=== PATIENT | male | born 1945 | race Caucasian/White ===

== ENCOUNTER 2023-01-13 12:22 | Emergency (ER) | payer OTHER ==
--- OUTSIDE RECORDS SUMMARY | 2023-01-13 12:26 | XMS REPORT | Continuity of Care Document ---
:1945 Author Organization [facility] t Address [address] [place] [address] Care Team Providers Name Role Phone JOAQUIN HUDSON Primary Care Physician Unavailable BLANE MELENDEZ Attending Clinician Unavailable James Wilkerson Attending Clinician Patric Fu Attending Clinician Blane Melendez MD Attending Clinician BLANE MELENDEZ Attending Clinician Unavailable Bessie Pichardo Attending Clinician Brigitte Melendrez CRNA Attending Clinician Belle Bates Attending Clinician Indira Joshua MD Attending Clinician Emma Pizano MD Attending Clinician BLANE MELENDEZ Admitting Clinician Unavailable Payers Payer Name Policy Type Policy Number Effective Date Expiration Date S eileen AETNA [facility] - [id number] AETNA Problems Condition Condition Condition Status Onset Resolution Last Treating Co mments Source Name Details Category Date Date Treatment Clinician Date Other Other Disease Active [facility] mechanical 1-18 Katie kes complicati complicati 00:00: Me dical on of on of 00 Center other other ocular ocular device, device, initial initial encounter encounter Glaucoma Glaucoma Disease Active [facility] Katie kes with with 00:00: Medical ocular ocular 00 Center inflammati inflammati on, severe on, severe stage, stage, bilateral bilateral Glaucoma Glaucoma Disease Recurre [facility] associated associated nce 8-17 Katie kes with with 00:00: Medical ocular ocular 00 Center inflammati inflammati on, severe on, severe stage, stage, bilateral bilateral Disorder Disorder Problem Active 2014-082022-12-22 Memoria of the of the 0-07 23:09:31 l peripheral peripheral 00:00: He rmann nervous nervous 00 system system (disorder) (disorder) Active 05/20/2015 Problem 12/22/2022 [facility] Idiopathic Idiopathi Problem Active 2013-082022-12-22 Memoria peripheral c 1-04 23:09:31 l neuropathy peripheral 00:00: He rmann (disorder) neuropathy 00 (disorder) Active 06/17/2014 Problem 12/22/2022 Medical [facility] Essential Essential Problem Active 2022-12-22 Memoria hypertensi hypertensi - 23:09:31 l on on 00:00: Chance (disorder) (disorder) 00 Active 02/05/2014 Problem 12/22/2022 Medical [facility] her [facility] Skin Skin Problem Active 2022-12-22 Memor ia sensation sensation - 23:09:31 l disturbanc disturbanc 00:00: He rmann e e 00 (finding) (finding) Active 02/05/2014 Problem 12/22/2022 Medical [facility] her [facility] Hypertensi Hypertens Problem Resolve 2022-02-24 Memoria ve lizzy d 02:36:19 l disorder, disorder, Herm bradley systemic systemic arterial arterial (disorder) (disorder) Resolved [facility] Large Large Problem Resolve 2022-02-24 [facility] allan prostate prostate d 02:36:19 l (finding) (finding) Herm bradley Resolved Problem 02/24/2022 [facility] her Neuro Bladder Bladder Problem Active 2022-12-22 Me moria muscle muscle 23:09:31 l dysfunctio dysfunctio He rmann n - n - underactiv underactiv e e (disorder) (disorder) Active Problem 12/22/2022 Medical Group,[facility] Hyperlipid Hyperlipi Problem Active 2022-12-22 Memoria breann demia 23:09:31 l (disorder) (disorder) He rmann Active Problem 12/22/2022 Medical Group,[facility] her Neuro,[facility] Lower Lower Problem Active 2022-12-22 Memor ia urinary urinary 23:09:31 l tract tract [place] symptoms symptoms (finding) (finding) Active Problem 12/22/2022 Medical Group,[facility] H20.9 - H20.9 - Diagnosis Active 2022-10-18 Memoria UNSPECIFIE UNSPECIFIE 10:11:00 l D D Chance IRIDOCYCLI IRIDOCYCLI TIS TIS Active [facility] Allergies, Adverse Reactions, Alerts Allergy Allergy Status Severity Reaction(s) Onset Inactive Treating Comm ents Source Name Type Date Date Clinician NO KNOWN Allergy Active [facility] No Known No Known Active Memori a Medicati Medicati l on on [facility] Social [facility] Social Habit Start Date Stop Date Quantity Comments Source Alcohol intake 2022-09-01 2022-09-01 Ex-drinker [facility] 00:[facility]:00 00:00:00 (finding) Medical [place] Social History 2022-07-22 2022-07-22 [facility] 17:02:48 17:02:48 Tobacco use and 2022-03-16 2022-03-16 Smokeless tobacco [facility] exposure 00:[facility]:00 00:00:00 non-user [facility] Smoking Status Start Date Stop Date Source Tobacco smoking status [facility] Medications Ordered Filled Start Stop Current Ordering Indication Dosage Frequency Signature Comments Components Source Medication Medication Date Date Medication? Clinician (SIG) Name Name neomycin-po Yes 1[drp] Q.25D 1 drop [address] [facility] [address] lymyxin-dex 1-20 (four) [facility] am[facility] 15:15: times Medica l (MAXITROL) 03 daily. Center 3.5mg/mL-10 ,000 unit/mL-0.1 % ophthalmic suspension white Yes Place into [facility] petrolatum- 1-20 both eyes Michael es mineral 15:15: 3 (three) Medic al oil-lanolin 03 times Center (AKWA daily as TEARS) Oint needed. ophthalmic ointment dorzolamide 2022- No 1[drp] Q.[id number] [address] (TRUSOPT) 2 -20 - [id number] (three) [facility]ukes % 15:15: 00:00 3D times Medical ophthalmic 03 :00 daily. Center solution brimonidine Yes 1[drp] Q.[id number] Place [address] [facility] [address] -timoloL - [id number] drop into [facility] (COMBIGAN) 15:17: 3D the left Med ical 0.2-0.5 % 33 eye 3 Center ophthalmic (three) solution times daily . finasteride Yes 5mg QD Take [address] (PROSCAR) 5 -19 by mouth Luke s mg tablet 15:17: daily. Medica l 33 Center nebivoloL Yes 10mg QD Take [address] (BYSTOLIC) -19 by mouth [facility] 10 MG 15:17: daily. Medical tablet 33 Center losartan Yes 50mg QD Take [address] (COZAAR) 50 -19 by mouth Luke s MG tablet 15:17: daily. Medica l 33 [place] diflupredna Yes 1[drp] Q.25D Place [address] [facility] te -19 drop into [facility] (DurezoL) 15:17: the right Med ical 0.05 % Drop 33 eye 4 [place] (four) times daily. moxifloxaci Yes 1[drp] Q.[id number] Place [address] n (VIGAMOX) -19 [id number] drop into [facility] 0.5 % 15:17: 3D the right Medical ophthalmic 33 eye 3 [place] solution (three) times daily. netarsudiL 2022- No 1[drp] QD Place [address] (Rhopressa) -09-01 drop into Katie kes 0.02 % Drop 14:53: 00:00 the left M edical 12 :00 eye Center nightly . cycloSPORIN 2022- No 1[drp] Apply [address] [facility] E (Cequa) 09-01 drop to [facility] 0.09 % Dpet 13:33: 00:00 eye(s) as Medical 29 :00 needed Center (dry eye) . cyanocobala 2022- No 1{tbl} QD Take [address] min/folic 09-01 tablet by Luke s ac/vit B6 13:33: 00:00 mouth Medica l (FOLBEE 23 :00 daily . Center ORAL) nebivoloL 0 Yes 10mg QD Take [address] (BYSTOLIC) 9-13 by mouth [facility]ukes 10 MG 13:08: daily. Medical tablet 01 [place] losartan Yes 50mg QD Take [address] (COZAAR) 50 9-13 by mouth Luke s MG tablet 13:08: daily. Medica l 01 [place] diflupredna Yes 1[drp] Q.25D Place [address] [facility] te 9-13 drop into [facility] (DurezoL) 13:08: the right Med ical 0.05 % Drop 01 eye 4 Center (four) times daily. moxifloxaci 0 Yes 1[drp] Q.[id number] Place [address] n (VIGAMOX) 9-13 [id number] drop into [facility] 0.5 % 13:08: 3D the right Medical ophthalmic 01 eye 3 Center solution (three) times daily. nebivoloL 0 Yes 10mg QD Take [address] (BYSTOLIC) 9-13 by mouth [facility]ukes 10 MG 13:08: daily. Medical tablet 01 [place] losartan Yes 50mg QD Take [address] (COZAAR) 50 9-13 by mouth Luke s MG tablet 13:08: daily. Medica l Center diflupredna 0 Yes 1[drp] Q.25D Place [address] [facility] [facility] te 9-13 drop into [facility]ukes (DurezoL) 13:08: the right Med ical 0.05 % Drop 01 eye 4 Center (four) times daily. moxifloxaci 0 Yes 1[drp] Q.[id number] Place [address] n (VIGAMOX) 9-13 [id number] drop into [facility] 0.5 % 13:08: 3D the right Medical ophthalmic 01 eye 3 Center solution (three) times daily. nebivoloL 2022-0 Yes 10mg QD Take [address] (BYSTOLIC) 9-13 by mouth [facility]ukes 10 MG 13:08: daily. Medical tablet 01 [place] losartan 2-0 Yes 50mg QD Take [address] (COZAAR) 50 9-13 by mouth Luke s MG tablet 13:08: daily. Medica l [address] [place] [address] diflupredna 2-0 Yes 1[drp] Q.25D Place [address] [facility] 9-13 drop into [facility]ukes (DurezoL) 13:08: the right Med ical 0.05 % Drop 01 eye 4 Center (four) times daily. moxifloxaci 2022-0 Yes 1[drp] Q.[id number] Place [address] n (VIGAMOX) 9-13 [id number] drop into [facility] 0.5 % 13:08: 3D the right Medical ophthalmic 01 eye 3 Center solution (three) times daily. nebivoloL 2022-0 Yes 10mg QD Take [address] (BYSTOLIC) 9-13 by mouth [facility]ukes 10 MG 13:08: daily. Medical tablet [address] [place] [address] losartan 2-0 Yes 50mg QD Take [address] (COZAAR) 50 9-13 by mouth Luke s MG tablet 13:08: daily. [facility] [address] diflupredna 2022-0 Yes 1[drp] Q.25D Place [address] [facility] 9-13 drop into [facility]ukes (DurezoL) 13:08: the right Med ical 0.05 % Drop 01 eye 4 Center (four) times daily. moxifloxaci 2022-0 Yes 1[drp] Q.[id number] Place [address] n (VIGAMOX) 9-13 [id number] drop into [facility] 0.5 % 13:08: 3D the right Medical ophthalmic 01 eye 3 Center solution (three) times daily. nebivoloL 2022-0 Yes 10mg QD Take [address] (BYSTOLIC) 9-13 by mouth [facility]ukes 10 MG 13:08: daily. Medical tablet [address] [place] [address] losartan 2-0 Yes 50mg QD Take [address] (COZAAR) 50 9-13 by mouth Luke s MG tablet 13:08: daily. Medica l 01 Center diflupredna Yes 1[drp] Q.25D Place [address] [facility] 9-13 drop into [facility]ukes (DurezoL) 13:08: the right Med ical 0.05 % Drop 01 eye 4 Center (four) times daily. moxifloxaci Yes 1[drp] Q.[id number] Place [address] n (VIGAMOX) 13 [id number] drop into [facility]ukes 0.5 % 13:08: 3D the right Medical ophthalmic 01 eye 3 Center solution (three) times daily. cycloSPORIN Yes 1[drp] Apply [address] E (Cequa) 9-12 drop to [facility]ukes 0.09 % Dpet 13:09: eye(s) as M edical 36 needed Center (dry eye) . brimonidine Yes 1[drp] Q.[id number] Place [address] -timoloL 12 [id number] drop into [facility]ukes (COMBIGAN) 13:09: 3D the left Med ical 0.2-0.5 % 36 eye 3 Center ophthalmic (three) solution times daily . finasteride Yes 5mg QD Take [address] (PROSCAR) 5 9-12 by mouth Luke s mg tablet 13:09: daily. Medica l 36 Center cyanocobala Yes 1{tbl} QD Take [address] min/folic 9-12 tablet by [facility] ac/vit B6 13:09: mouth Medical (FOLBEE 36 daily . Center ORAL) netarsudiL 0 Yes 1[drp] QD Place [address] (Rhopressa) 9-12 drop into Michael es 0.02 % Drop 13:09: the left Me dical 36 eye Center nightly . cycloSPORIN 2021-0 Yes 1[drp] Apply [address] E (Cequa) 9-12 drop to [facility] 0.09 % Dpet 13:09: eye(s) as M edical 36 needed Center (dry eye) . brimonidine 0 Yes 1[drp] Q.[id number] Place [address] -timoloL 9-12 [id number] drop into [facility] (COMBIGAN) 13:09: 3D the left Med ical 0.2-0.5 % 36 eye 3 Center ophthalmic (three) solution times daily . finasteride 2022-0 Yes 5mg QD Take [address] (PROSCAR) 5 9-12 by mouth Luke s mg tablet 13:09: daily. Medica l 36 Center cyanocobala 2-0 Yes 1{tbl} QD Take [address] min/folic 9-12 tablet by [facility] ac/vit B6 13:09: mouth Medical (FOLBEE 36 daily . Center ORAL) netarsudiL 2-0 Yes 1[drp] QD Place [address] (Rhopressa) 9-12 drop into Michael es 0.02 % Drop 13:09: the left Me dical 36 eye Center nightly . cycloSPORIN 2-0 Yes 1[drp] Apply [address] [facility] (Cequa) 9-12 drop to [facility] 0.09 % Dpet 13:09: eye(s) as M edical 36 needed Center (dry eye) . brimonidine 2021-0 Yes 1[drp] Q.[id number] Place [address] [facility] [address] -timoloL -12 [id number] drop into [facility] (COMBIGAN) 13:09: 3D the left Med ical 0.2-0.5 % 36 eye 3 Center ophthalmic (three) solution times daily . finasteride 2022-0 Yes 5mg QD Take [address] (PROSCAR) 5 9-12 by mouth Luke s mg tablet 13:09: daily. Medica l 36 Center cyanocobala 2021-0 Yes 1{tbl} QD Take [address] min/folic 9-12 tablet by [facility] ac/vit B6 13:09: mouth Medical (FOLBEE 36 daily . Center ORAL) netarsudiL 2022-0 Yes 1[drp] QD Place [address] (Rhopressa) 9-12 drop into Michael es 0.02 % Drop 13:09: the left Me dical 36 eye Center nightly . cycloSPORIN 2022-0 Yes 1[drp] Apply [address] [facility] (Cequa) 9-12 drop to [facility] 0.09 % Dpet 13:09: eye(s) as M edical 36 needed Center (dry eye) . brimonidine 2021-0 Yes 1[drp] Q.[id number] Place [address] [address] -timoloL 9-12 [id number] drop into [facility]ukes (COMBIGAN) 13:09: 3D the left Med ical 0.2-0.5 % 36 eye 3 Center ophthalmic (three) solution times daily . finasteride 2022-0 Yes 5mg QD Take [address] (PROSCAR) 5 9-12 by mouth Luke s mg tablet 13:09: daily. Medica l 36 Center cyanocobala 2021-0 Yes 1{tbl} QD Take [address] min/folic 9-12 tablet by [facility]ukes ac/vit B6 13:09: mouth Medical (FOLBEE 36 daily . Center ORAL) netarsudiL 2021-0 Yes 1[drp] QD Place [address] (Rhopressa) 9-12 drop into Michael es 0.02 % Drop 13:09: the left Ks dical 36 eye Center nightly . cycloSPORIN 2021-0 Yes 1[drp] Apply [address] [facility] (Cequa) 9-12 drop to [facility] 0.09 % Dpet 13:09: eye(s) as M edical 36 needed Center (dry eye) . brimonidine 2021-0 Yes 1[drp] Q.[id number] Place [address] [facility] [address] -timoloL 9-12 [id number] drop into [facility] (COMBIGAN) 13:09: 3D the left Med ical 0.2-0.5 % 36 eye 3 Center ophthalmic (three) solution times daily . finasteride 2022-0 Yes 5mg QD Take [address] (PROSCAR) 5 9-12 by mouth Luke s mg tablet 13:09: daily. Medica l 36 Center cyanocobala 2021-0 Yes 1{tbl} QD Take [address] min/folic 9-12 tablet by [facility]ukes ac/vit B6 13:09: mouth Medical (FOLBEE 36 daily . Center ORAL) netarsudiL 2022-0 Yes 1[drp] QD Place [address] (Rhopressa) 9-12 drop into Michael es 0.02 % Drop 13:09: the left Me dical 36 eye Center nightly . acetaZOLAMI 2021- No 500mg Q.5D Take [address] [facility] (DIAMOX) 8-23 08-22 mg by [facility] 500 mg 12 12:00: 00:00 mouth 2 Medi xochitl hr capsule 04 :00 (two) Center times daily. acetaZOLAMI 2021- No 500mg Q.5D Take [address] [facility] (DIAMOX) 8-23 08-22 mg by [facility] 500 mg 12 12:00: 00:00 mouth 2 Medi xochitl hr capsule 04 :00 (two) Center times daily. acetaZOLAMI 2021- No 500mg Q.5D Take [address] [facility] (DIAMOX) 8-23 08-22 mg by [facility] 500 mg 12 12:00: 00:00 mouth 2 Medi xochitl hr capsule 04 :00 (two) Center times daily. acetaZOLAMI 2021- No 500mg Q.5D Take [address] [facility] (DIAMOX) 8-23 08-22 mg by [facility] 500 mg 12 12:00: 00:00 mouth 2 Medi xochitl hr capsule 04 :00 (two) Center times daily. acetaZOLAMI 2021- No 500mg Q.5D Take [address] [facility] (DIAMOX) 8-23 08-22 mg by [facility] 500 mg 12 12:00: 00:00 mouth 2 Medi xochitl hr capsule 04 :00 (two) Center times daily. acetaZOLAMI 2021- No 500mg Q.5D Take [address] [facility] (DIAMOX) 8-23 08-22 mg by [facility] 500 mg 12 12:00: 00:00 mouth 2 Medi xochitl hr capsule 04 :00 (two) Center times daily. cycloSPORIN 2021- No Apply to [facility] E (Cequa) - 08-03 eye(s). [facility] 0.09 % Dpet 12:00: 00:00 Medic al 04 :00 Center dorzolamide 2021- No 1[drp] Q.[id number] [address] [facility] (TRUSOPT) 2 - 08-03 [id number] (three) [facility]ukes % 12:00: 00:00 3D times Medical ophthalmic 04 :00 daily. Center solution pilocarpine 2021-0 2021- No 1[drp] Q.25D [address] [facility] [address] (PILOCAR) 2 04-05- (four) [facility]ukes % 12:00: 00:00 times Medical ophthalmic 04 :00 daily. Center solution cycloSPORIN 2021-2021- No Apply to [facility] E (Cequa) 04-05- eye(s). [facility] 0.09 % Dpet 12:00: 00:00 Medic al 04 :00 Center dorzolamide 2021-0 2021- No 1[drp] Q.[id number] [address] [facility] (TRUSOPT) 2 04-05- [id number] (three) [facility]ukes % 12:00: 00:00 3D times Medical ophthalmic 04 :00 daily. Center solution pilocarpine 2021-0 2021- No 1[drp] Q.25D [address] [facility] (PILOCAR) 2 04-05 (four) [facility]ukes % 12:00: 00:00 times Medical ophthalmic 04 :00 daily. Center solution cycloSPORIN 2021-0 2021- No Apply to [facility] (Cequa) 04-05 eye(s). [facility] 0.09 % Dpet 12:00: 00:00 Medic al 04 :00 Center dorzolamide 2021-0 2021- No 1[drp] Q.[id number] [address] [facility] (TRUSOPT) 2 04-05 [id number] (three) [facility]ukes % 12:00: 00:00 3D times Medical ophthalmic 04 :00 daily. Center solution pilocarpine 2021-0 2021- No 1[drp] Q.25D [address] [facility] [address] (PILOCAR) 2 04-05 (four) [facility] % 12:00: 00:00 times Medical ophthalmic 04 :00 daily. Center solution cycloSPORIN 2021-0 2021- No Apply to [facility] (Cequa) 04-05- eye(s). [facility] 0.09 % Dpet 12:00: 00:00 Medic al 04 :00 Center dorzolamide 2021-0 2021- No 1[drp] Q.[id number] [address] [facility] (TRUSOPT) 2 04-05 [id number] (three) [facility]ukes % 12:00: 00:00 3D times Medical ophthalmic 04 :00 daily. Center solution pilocarpine 2021- No 1[drp] Q.25D [address] [facility] [address] (PILOCAR) 2 04-05 (four) [facility]ukes % 12:00: 00:00 times Medical ophthalmic 04 :00 daily. Center solution cycloSPORIN 2021- No Apply to [facility] (Cequa) 04-05 eye(s). [facility] 0.09 % Dpet 12:00: 00:00 Medic al 04 :00 Center dorzolamide 2021- No 1[drp] Q.[id number] [address] [facility] (TRUSOPT) 2 04-05 [id number] (three) [facility]ukes % 12:00: 00:00 3D times Medical ophthalmic 04 :00 daily. Center solution pilocarpine 2021- No 1[drp] Q.25D [address] [facility] (PILOCAR) 2 04-05 (four) [facility] % 12:00: 00:00 times Medical ophthalmic 04 :00 daily. Center solution cycloSPORIN 2021- No Apply to [facility] (Cequa) 04-05 eye(s). [facility] 0.09 % Dpet 12:00: 00:00 Medic al 04 :00 [place] dorzolamide 2021- No 1[drp] Q.[id number] [address] [facility] (TRUSOPT) 2 04-05 [id number] (three) [facility] % 12:00: 00:00 3D times Medical ophthalmic 04 :00 daily. Center solution pilocarpine 2021- No 1[drp] Q.25D [address] (PILOCAR) 2 04-05 (four) [facility] % 12:00: 00:00 times Medical ophthalmic 04 :00 daily. Center solution Proscar 5 Yes 5 mg = 1 Abdullahi allan mg oral 7-11 tab, PO, l tablet 15:51: Daily, # Chance 00 90 tab, 3 Refill(s), Pharmacy: [id number], 175.26, cm, 02/21/22 10:16:00 CDT, Height, 80.17, kg, 02/21/22 10:16:00 CDT, Weight Proscar 5 2022-0 Yes 5 mg = 1 Abdullahi allan mg oral 7-11 tab, PO, l tablet 15:51: Daily, # [place] 00 90 tab, 3 Refill(s), Pharmacy: [id number], 175.26, cm, 02/21/22 10:16:00 CDT, Height, 80.17, kg, 02/21/22 10:16:00 CDT, Weight Proscar 5 2022-0 Yes 5 mg = 1 Abdullahi allan mg oral 7-11 tab, PO, l tablet 15:51: Daily, # [place] 00 90 tab, 3 Refill(s), Pharmacy: [facility] #[id number], 175.26, cm, 02/21/22 10:16:00 CDT, Height, 80.17, kg, 02/21/22 10:16:00 CDT, Weight Proscar 5 2022-0 Yes 5 mg = 1 Abdullahi allan mg oral 7-11 tab, PO, l tablet 15:51: Daily, # Chance 00 90 tab, 3 Refill(s), Pharmacy: [id number], 175.26, cm, 02/21/22 10:16:00 CDT, Height, 80.17, kg, 02/21/22 10:16:00 CDT, Weight Proscar 5 2022-0 Yes 5 mg = 1 Abdullahi allan mg oral 7-11 tab, PO, l tablet 15:51: Daily, # [place] 00 90 tab, 3 Refill(s), Pharmacy: [id number], 175.26, cm, 02/21/22 10:16:00 CDT, Height, 80.17, kg, 02/21/22 10:16:00 CDT, Weight Proscar 5 2022-0 Yes 5 mg = 1 Abdullahi allan mg oral 7-11 tab, PO, l tablet 15:51: Daily, # [place] 00 90 tab, 3 Refill(s), Pharmacy: [id number], 175.26, cm, 02/21/22 10:16:00 CDT, Height, 80.17, kg, 02/21/22 10:16:00 CDT, Weight Proscar 5 2022-0 Yes 5 mg = 1 Abdullahi allan mg oral 7-11 tab, PO, l tablet 15:51: Daily, # Chance 00 90 tab, 3 Refill(s), [id number], 175.26, cm, 02/21/22 10:16:00 CDT, Height, 80.17, kg, 02/21/22 10:16:00 CDT, Weight Proscar 5 2022-0 Yes 5 mg = 1 Abdullahi allan mg oral 7-11 tab, PO, l tablet 15:51: Daily, # Chance 00 90 tab, 3 Refill(s), Pharmacy: [id number], 175.26, cm, 02/21/22 10:16:00 CDT, Height, 80.17, kg, 02/21/22 10:16:00 CDT, Weight tamsulosin 2-0 Yes 0.4 mg = 1 M emoria 0.4 mg oral 7-11 cap, PO, l capsule 15:50: Daily, # Markus n 00 90 cap, 3 Refill(s), Pharmacy: [id number], 175.26, cm, 02/21/22 10:16:00 CDT, Height, 80.17, kg, 02/21/22 10:16:00 CDT, Weight tamsulosin 2-0 Yes 0.4 mg = 1 M emoria 0.4 mg oral 7-11 cap, PO, l capsule 15:50: Daily, # Markus n 00 90 cap, 3 Refill(s), Pharmacy: [id number], 175.26, cm, 02/21/22 10:16:00 CDT, Height, 80.17, kg, 02/21/22 10:16:00 CDT, Weight tamsulosin 2022-0 Yes 0.4 mg = 1 M emoria 0.4 mg oral 7-11 cap, PO, l capsule 15:50: Daily, # Markus n 00 90 cap, 3 Refill(s), Pharmacy: [id number], 175.26, cm, 02/21/22 10:16:00 CDT, Height, 80.17, kg, 02/21/22 10:16:00 CDT, Weight tamsulosin 2022-0 Yes 0.4 mg = 1 M emoria 0.4 mg oral 7-11 cap, PO, l capsule 15:50: Daily, # Markus n 00 90 cap, 3 Refill(s), Pharmacy: [id number], 175.26, cm, 02/21/22 10:16:00 CDT, Height, 80.17, kg, 02/21/22 10:16:00 CDT, Weight tamsulosin 2022-0 Yes 0.4 mg = 1 M emoria 0.4 mg oral 7-11 cap, PO, l capsule 15:50: Daily, # Markus n 00 90 cap, 3 Refill(s), Pharmacy: [id number], 175.26, cm, 02/21/22 10:16:00 CDT, Height, 80.17, kg, 02/21/22 10:16:00 CDT, Weight tamsulosin 2022-0 Yes 0.4 mg = 1 M emoria 0.4 mg oral 7-11 cap, PO, l capsule 15:50: Daily, # Markus n 00 90 cap, 3 Refill(s), Pharmacy: [id number], 175.26, cm, 02/21/22 10:16:00 CDT, Height, 80.17, kg, 02/21/22 10:16:00 CDT, Weight tamsulosin 2022-0 Yes 0.4 mg = 1 M emoria 0.4 mg oral 7-11 cap, PO, l capsule 15:50: Daily, # Markus n 00 90 cap, 3 Refill(s), Pharmacy: [facility] #[id number], 175.26, cm, 02/21/22 10:16:00 CDT, Height, 80.17, kg, 02/21/22 10:16:00 CDT, Weight tamsulosin 2022-0 Yes 0.4 mg = 1 M emoria 0.4 mg oral 7-11 cap, PO, l capsule 15:50: Daily, # Markus n 00 90 cap, 3 Refill(s), Pharmacy: [id number], 175.26, cm, 02/21/22 10:16:00 CDT, Height, 80.17, kg, 02/21/22 10:16:00 CDT, Weight Combigan 2021-0 Yes 0 [facility] ophthalmic 7-11 Refill(s) l solution 15:16: Combigan 2021-0 Yes 0 [facility]oria ophthalmic 7-11 Refill(s) l solution 15:16: Combigan 2021-0 Yes 0 [facility]oria ophthalmic 7-11 Refill(s) l solution 15:16: Combigan 2021-0 Yes 0 Memoria ophthalmic 7-11 Refill(s) l solution 15:16: Combigan 2021-0 Yes 0 Memoria ophthalmic 7-11 Refill(s) l solution 15:16: Combigan 2021-0 Yes 0 Memoria ophthalmic 7-11 Refill(s) l solution 15:16: Combigan 2021-0 Yes 0 Memoria ophthalmic 7-11 Refill(s) l solution 15:16: Combigan 2021-0 Yes 0 Memoria ophthalmic 7-11 Refill(s) l solution 15:16: gabapentin 2021-0 Yes 100 mg = 1 M emoria 100 mg oral 6-16 cap, PO, l capsule 20:26: TID, PRN Markus n 00 neuropathy pain, # 90 cap, 2 Refill(s), Pharmacy: [facility] #[id number], 176.53, cm, 01/27/22 15:15:00 CDT, Height, 80.142, kg, 01/27/22 15:15:00 CDT, Weight gabapentin 2021-0 Yes 100 mg = 1 M emoria 100 mg oral 6-16 cap, PO, l capsule 20:26: TID, PRN Markus n 00 neuropathy pain, # 90 cap, 2 Refill(s), Pharmacy: [facility] #[id number], 176.53, cm, 01/27/22 15:15:00 CDT, Height, 80.142, kg, 01/27/22 15:15:00 CDT, Weight gabapentin 2022-0 Yes 100 mg = 1 M emoria 100 mg oral 6-16 cap, PO, l capsule 20:26: TID, PRN Markus n 00 neuropathy pain, # 90 cap, 2 Refill(s), Pharmacy: [id number], 176.53, cm, 01/27/22 15:15:00 CDT, Height, 80.142, kg, 01/27/22 15:15:00 CDT, Weight gabapentin 2022-0 Yes 100 mg = 1 M emoria 100 mg oral 6-16 cap, PO, l capsule 20:26: TID, PRN Markus n 00 neuropathy pain, # 90 cap, 2 Refill(s), Pharmacy: [id number], 176.53, cm, 01/27/22 15:15:00 CDT, Height, 80.142, kg, 01/27/22 15:15:00 CDT, Weight gabapentin 2022-0 Yes 100 mg = 1 M emoria 100 mg oral 6-16 cap, PO, l capsule 20:26: TID, PRN Markus n 00 neuropathy pain, # 90 cap, 2 Refill(s), Pharmacy: [id number], 176.53, cm, 01/27/22 15:15:00 CDT, Height, 80.142, kg, 01/27/22 15:15:00 CDT, Weight gabapentin 2022-0 Yes 100 mg = 1 M emoria 100 mg oral 6-16 cap, PO, l capsule 20:26: TID, PRN Markus n 00 neuropathy pain, # 90 cap, 2 Refill(s), Pharmacy: [id number], 176.53, cm, 01/27/22 15:15:00 CDT, Height, 80.142, kg, 01/27/22 15:15:00 CDT, Weight gabapentin 2022-0 Yes 100 mg = 1 M emoria 100 mg oral 6-16 cap, PO, l capsule 20:26: TID, PRN Markus n 00 neuropathy pain, # 90 cap, 2 Refill(s), Pharmacy: [id number], 176.53, cm, 01/27/22 15:15:00 CDT, Height, 80.142, kg, 01/27/22 15:15:00 CDT, Weight gabapentin Yes 100 mg = 1 M emoria 100 mg oral 6-16 cap, PO, l capsule 20:26: TID, PRN Markus n 00 neuropathy pain, # 90 cap, 2 Refill(s), Pharmacy: [facility] #[id number], 176.53, cm, 01/27/22 15:15:00 CDT, Height, 80.142, kg, 01/27/22 15:15:00 CDT, Weight acetaZOLAMI Yes TAKE 1 Abdullahi allan DE 500 mg 6-16 CAPSULE BY l oral 20:20: MOUTH TWO [place] capsule, 00 TIMES extended DAILY release Folbee oral Yes TAKE 1 Abdullahi allan tablet 6-16 TABLET BY l 20:20: MOUTH [place] 00 EVERY DAY Vitamin D3 Yes TAKE 1 Memor ia 50,000 intl 6-16 CAPSULE BY l units oral 20:20: MOUTH Markus n capsule 00 TWICE A MONTH acetaZOLAMI Yes TAKE 1 Abdullahi allan DE 500 mg 6-16 CAPSULE BY l oral 20:20: MOUTH TWO [place] capsule, 00 TIMES extended DAILY release Folbee oral Yes TAKE 1 Abdullahi allan tablet 6-16 TABLET BY l 20:20: MOUTH [facility] 00 EVERY DAY Vitamin D3 Yes TAKE 1 Memor ia 50,000 intl 6-16 CAPSULE BY l units oral 20:20: MOUTH Markus n capsule 00 TWICE A MONTH acetaZOLAMI Yes TAKE 1 Abdullahi allan DE 500 mg 6-16 CAPSULE BY l oral 20:20: MOUTH TWO [facility] capsule, 00 TIMES extended DAILY release Folbee oral Yes TAKE 1 Abdullahi allan tablet 6-16 TABLET BY l 20:20: MOUTH [facility] 00 EVERY DAY Vitamin D3 Yes TAKE 1 Memor ia 50,000 intl 6-16 CAPSULE BY l units oral 20:20: MOUTH Markus n capsule 00 TWICE A MONTH acetaZOLAMI Yes TAKE 1 Abdullahi allan DE 500 mg 6-16 CAPSULE BY l oral 20:20: MOUTH TWO [place] capsule, 00 TIMES extended DAILY release Folbee oral 2022-0 Yes TAKE 1 Abdullahi allan tablet 6-16 TABLET BY l 20:20: MOUTH [place] 00 EVERY DAY Vitamin D3 Yes TAKE 1 Memor ia 50,000 intl 6-16 CAPSULE BY l units oral 20:20: MOUTH Markus n capsule 00 TWICE A MONTH acetaZOLAMI Yes TAKE 1 Abdullahi allan DE 500 mg 6-16 CAPSULE BY l oral 20:20: MOUTH TWO [place] capsule, 00 TIMES extended DAILY release Folbee oral Yes TAKE 1 Abdullahi allan tablet 6-16 TABLET BY l 20:20: MOUTH [facility] 00 EVERY DAY Vitamin D3 Yes TAKE 1 Memor ia 50,000 intl 6-16 CAPSULE BY l units oral 20:20: MOUTH Markus n capsule 00 TWICE A MONTH acetaZOLAMI Yes TAKE 1 Abdullahi allan DE 500 mg 6-16 CAPSULE BY l oral 20:20: MOUTH TWO [facility] capsule, 00 TIMES extended DAILY release Folbee oral Yes TAKE 1 Abdullahi allan tablet 6-16 TABLET BY l 20:20: MOUTH [place] 00 EVERY DAY Vitamin D3 Yes TAKE 1 Memor ia 50,000 intl 6-16 CAPSULE BY l units oral 20:20: MOUTH Markus n capsule 00 TWICE A MONTH acetaZOLAMI Yes TAKE 1 Abdullahi allan DE 500 mg 6-16 CAPSULE BY l oral 20:20: MOUTH TWO [place] capsule, 00 TIMES extended DAILY release Folbee oral Yes TAKE 1 Abdullahi allan tablet 6-16 TABLET BY l 20:20: MOUTH [place] 00 EVERY DAY Vitamin D3 Yes TAKE 1 Memor ia 50,000 intl 6-16 CAPSULE BY l units oral 20:20: MOUTH Markus n capsule 00 TWICE A MONTH Folbee oral Yes TAKE 1 Abdullahi allan tablet 6-16 TABLET BY l 20:20: MOUTH [facility] 00 EVERY DAY Vitamin D3 Yes TAKE 1 Memor ia 50,000 intl 6-16 CAPSULE BY l units oral 20:20: MOUTH Markus n capsule 00 TWICE A MONTH acetaZOLAMI Yes TAKE 1 Abdullahi allan DE 500 mg 6-16 CAPSULE BY l oral 20:20: MOUTH TWO [place] capsule, 00 TIMES extended DAILY release Tamsulosin Yes 0.4 mg = 1 M emoria hydrochlori 7-19 cap, PO, l de 0.4 MG 14:52: Daily, # Kyle bradley Oral 00 90 cap, 0 Capsule Refill(s), [Flomax] Pharmacy: [facility] #[id number], 175.26, cm, 03/01/21 9:23:00 CDT, Height, 85, kg, 03/01/21 9:23:00 CDT, Weight Finasteride 2020-0 Yes 5 mg = 1 Me moria 5 MG Oral 7-19 tab, PO, l Tablet 14:52: Daily, Steven Fletcher [Proscar] 00 90 tab, 0 Refill(s), Pharmacy: [facility] #[id number], 175.26, cm, 03/01/21 9:23:00 CDT, Height, 85, kg, 03/01/21 9:23:00 CDT, Weight Tamsulosin 2020-0 Yes 0.4 mg = 1 M emoria hydrochlori 7-19 cap, PO, l de 0.4 MG 14:52: Daily, # Kyle bradley Oral 00 90 cap, 0 Capsule Refill(s), [Flomax] Pharmacy: [facility] #[id number], 175.26, cm, 03/01/21 9:23:00 CDT, Height, 85, kg, 03/01/21 9:23:00 CDT, Weight Finasteride 2020-0 Yes 5 mg = 1 Me moria 5 MG Oral 7-19 tab, PO, l Tablet 14:52: Daily, Steven Fletcher [Proscar] 00 90 tab, 0 Refill(s), Pharmacy: [facility] #[id number], 175.26, cm, 03/01/21 9:23:00 CDT, Height, 85, kg, 03/01/21 9:23:00 CDT, Weight Tamsulosin 2020-0 Yes 0.4 mg = 1 M emoria hydrochlori 7-19 cap, PO, l de 0.4 MG 14:52: Daily, # Herm bradley Oral 00 90 cap, 0 Capsule Refill(s), [Flomax] Pharmacy: [facility] #[id number], 175.26, cm, 03/01/21 9:23:00 CDT, Height, 85, kg, 03/01/21 9:23:00 CDT, Weight Finasteride 2020-0 Yes 5 mg = 1 Me moria 5 MG Oral 7-19 tab, PO, l Tablet 14:52: Daily, # [facility] [Proscar] 00 90 tab, 0 Refill(s), Pharmacy: [facility] #[id number], 175.26, cm, 03/01/21 9:23:00 CDT, Height, 85, kg, 03/01/21 9:23:00 CDT, Weight Tamsulosin 2020-0 Yes 0.4 mg = 1 M emoria hydrochlori 7-19 cap, PO, l de 0.4 MG 14:52: Daily, # Herm bradley Oral 00 90 cap, 0 Capsule Refill(s), [Flomax] Pharmacy: [facility] #[id number], 175.26, cm, 03/01/21 9:23:00 CDT, Height, 85, kg, 03/01/21 9:23:00 CDT, Weight Finasteride 2020-0 Yes 5 mg = 1 Me moria 5 MG Oral 7-19 tab, PO, l Tablet 14:52: Daily, # [facility] [Proscar] 00 90 tab, 0 Refill(s), Pharmacy: [facility] #[id number], 175.26, cm, 03/01/21 9:23:00 CDT, Height, 85, kg, 03/01/21 9:23:00 CDT, Weight Tamsulosin 2020-0 Yes 0.4 mg = 1 M emoria hydrochlori 7-19 cap, PO, l de 0.4 MG 14:52: Daily, # Herm bradley Oral 00 90 cap, 0 Capsule Refill(s), [Flomax] Pharmacy: [facility] #[id number], 175.26, cm, 03/01/21 9:23:00 CDT, Height, 85, kg, 03/01/21 9:23:00 CDT, Weight Finasteride 1-0 Yes 5 mg = 1 Me moria 5 MG Oral 7-19 tab, PO, l Tablet 14:52: Daily, # [place] [Proscar] 00 90 tab, 0 Refill(s), Pharmacy: [facility] #[id number], 175.26, cm, 03/01/21 9:23:00 CDT, Height, 85, kg, 03/01/21 9:23:00 CDT, Weight Tamsulosin 1-0 Yes 0.4 mg = 1 M emoria hydrochlori 7-19 cap, PO, l de 0.4 MG 14:52: Daily, # Herm bradley Oral 00 90 cap, 0 Capsule Refill(s), [Flomax] Pharmacy: [facility] #[id number], 175.26, cm, 03/01/21 9:23:00 CDT, Height, 85, kg, 03/01/21 9:23:00 CDT, Weight Finasteride 2020-0 Yes 5 mg = 1 Me moria 5 MG Oral 7-19 tab, PO, l Tablet 14:52: Daily, # [facility] [Proscar] 00 90 tab, 0 Refill(s), Pharmacy: [facility] #[id number], 175.26, cm, 03/01/21 9:23:00 CDT, Height, 85, kg, 03/01/21 9:23:00 CDT, Weight Tamsulosin 2020-0 Yes 0.4 mg = 1 M emoria hydrochlori 7-19 cap, PO, l de 0.4 MG 14:52: Daily, # Herm bradley Oral 00 90 cap, 0 Capsule Refill(s), [Flomax] Pharmacy: [facility] #[id number], 175.26, cm, 03/01/21 9:23:00 CDT, Height, 85, kg, 03/01/21 9:23:00 CDT, Weight Finasteride 2020-0 Yes 5 mg = 1 Me moria 5 MG Oral 7-19 tab, PO, l Tablet 14:52: Daily, # [facility] [Proscar] 00 90 tab, 0 Refill(s), Pharmacy: [facility] #[id number], 175.26, cm, 03/01/21 9:23:00 CDT, Height, 85, kg, 03/01/21 9:23:00 CDT, Weight Tamsulosin 1-0 Yes 0.4 mg = 1 M emoria hydrochlori 7-19 cap, PO, l de 0.4 MG 14:52: Daily, # Herm bradley Oral 00 90 cap, 0 Capsule Refill(s), [Flomax] Pharmacy: [id number], 175.26, cm, 03/01/21 9:23:00 CDT, Height, 85, kg, 03/01/21 9:23:00 CDT, Weight Finasteride 2020-0 Yes 5 mg = 1 Me moria 5 MG Oral 7-19 tab, PO, l Tablet 14:52: Daily, # [facility] [Proscar] 00 90 tab, 0 Refill(s), Pharmacy: [id number], 175.26, cm, 03/01/21 9:23:00 CDT, Height, 85, kg, 03/01/21 9:23:00 CDT, Weight finasteride 2019-0 Yes 5 mg = 1 Me moria 5 mg oral 7-22 tab, PO, l tablet 14:46: Daily, # [place] 00 90 tab, 3 Refill(s), Pharmacy: [id number], 175.26, cm, 03/04/20 9:31:00 CDT, Height, 89.091, kg, 03/04/20 9:31:00 CDT, Weight finasteride 2019-0 Yes 5 mg = 1 Me moria 5 mg oral 7-22 tab, PO, l tablet 14:46: Daily, # [place] 00 90 tab, 3 Refill(s), Pharmacy: [id number], 175.26, cm, 03/04/20 9:31:00 CDT, Height, 89.091, kg, 03/04/20 9:31:00 CDT, Weight finasteride 2020-0 Yes 5 mg = 1 Me moria 5 mg oral 7-22 tab, PO, l tablet 14:46: Daily, # [place] 00 90 tab, 3 Refill(s), Pharmacy: [id number], 175.26, cm, 03/04/20 9:31:00 CDT, Height, 89.091, kg, 03/04/20 9:31:00 CDT, Weight finasteride 2020-0 Yes 5 mg = 1 Me moria 5 mg oral 7-22 tab, PO, l tablet 14:46: Daily, # [facility] 00 90 tab, 3 Refill(s), Pharmacy: [id number], 175.26, cm, 03/04/20 9:31:00 CDT, Height, 89.091, kg, 03/04/20 9:31:00 CDT, Weight finasteride 2020-0 Yes 5 mg = 1 Me moria 5 mg oral 7-22 tab, PO, l tablet 14:46: Daily, # [place] 00 90 tab, 3 Refill(s), Pharmacy: [facility] #[id number], 175.26, cm, 03/04/20 9:31:00 CDT, Height, 89.091, kg, 03/04/20 9:31:00 CDT, Weight finasteride 2020-0 Yes 5 mg = 1 Me moria 5 mg oral 7-22 tab, PO, l tablet 14:46: Daily, # [place] 90 tab, 3 Refill(s), Pharmacy: [facility] #[id number], 175.26, cm, 03/04/20 9:31:00 CDT, Height, 89.091, kg, 03/04/20 9:31:00 CDT, Weight finasteride 2020-0 Yes 5 mg = 1 Me moria 5 mg oral 7-22 tab, PO, l tablet 14:46: Daily, # Chance 90 tab, 3 Refill(s), Pharmacy: [id number], 175.26, cm, 03/04/20 9:31:00 CDT, Height, 89.091, kg, 03/04/20 9:31:00 CDT, Weight finasteride 2020-0 Yes 5 mg = 1 Me moria 5 mg oral 7-22 tab, PO, l tablet 14:46: Daily, # [facility] 00 90 tab, 3 Refill(s), Pharmacy: [facility] #[id number], 175.26, cm, 03/04/20 9:31:00 CDT, Height, 89.091, kg, 03/04/20 9:31:00 CDT, Weight nepafenac 3 2020-0 Yes 0 Memori a MG/ML 7-22 Refill(s) l Ophthalmic 14:40: [place] Suspension 00 [Ilevro] diflupredna 2020-0 Yes 0 Memori a te 0.5 7-22 Refill(s) l MG/ML 14:40: [facility] Ophthalmic 00 Suspension [Durezol] besifloxaci 2020-0 Yes 0 Memori a n 6 MG/ML 7-22 Refill(s) l Ophthalmic 14:40: [place] Suspension 00 [Besivance] nepafenac 3 2020-0 Yes 0 Memori a MG/ML 7-22 Refill(s) l Ophthalmic 14:40: [facility] Suspension 00 [Ilevro] diflupredna 2020-0 Yes 0 Memori a te 0.5 7-22 Refill(s) l MG/ML 14:40: [facility] Ophthalmic 00 Suspension [Durezol] besifloxaci 2020-0 Yes 0 Memori a n 6 MG/ML 7-22 Refill(s) l Ophthalmic 14:40: [place] Suspension 00 [Besivance] nepafenac 3 2020-0 Yes 0 Memori a MG/ML 7-22 Refill(s) l Ophthalmic 14:40: [facility] Suspension 00 [Ilevro] diflupredna 2020-0 Yes 0 Memori a te 0.5 7-22 Refill(s) l MG/ML 14:40: [facility] Ophthalmic 00 Suspension [Durezol] besifloxaci 2020-0 Yes 0 Memori a n 6 MG/ML 7-22 Refill(s) l Ophthalmic 14:40: [facility] Suspension 00 [Besivance] nepafenac 3 2020-0 Yes 0 Memori a MG/ML 7-22 Refill(s) l Ophthalmic 14:40: [facility] Suspension 00 [Ilevro] diflupredna 2020-0 Yes 0 Memori a te 0.5 7-22 Refill(s) l MG/ML 14:40: [place] Ophthalmic 00 Suspension [Durezol] besifloxaci 2020-0 Yes 0 Memori a n 6 MG/ML 7-22 Refill(s) l Ophthalmic 14:40: [place] Suspension 00 [Besivance] nepafenac 3 2020-0 Yes 0 Memori a MG/ML 7-22 Refill(s) l Ophthalmic 14:40: [place] Suspension 00 [Ilevro] diflupredna 2020-0 Yes 0 Memori a te 0.5 7-22 Refill(s) l MG/ML 14:40: [place] Ophthalmic 00 Suspension [Durezol] besifloxaci 2020-0 Yes 0 Memori a n 6 MG/ML 7-22 Refill(s) l Ophthalmic 14:40: [place] Suspension 00 [Besivance] nepafenac 3 2020-0 Yes 0 Memori a MG/ML 7-22 Refill(s) l Ophthalmic 14:40: [place] Suspension 00 [Ilevro] diflupredna 2020-0 Yes 0 Memori a te 0.5 7-22 Refill(s) l MG/ML 14:40: [place] Ophthalmic 00 Suspension [Durezol] besifloxaci 2020-0 Yes 0 Memori a n 6 MG/ML 7-22 Refill(s) l Ophthalmic 14:40: [place] Suspension 00 [Besivance] nepafenac 3 2020-0 Yes 0 Memori a MG/ML 7-22 Refill(s) l Ophthalmic 14:40: [place] Suspension 00 [Ilevro] diflupredna 2020-0 Yes 0 Memori a te 0.5 7-22 Refill(s) l MG/ML 14:40: [place] Ophthalmic 00 Suspension [Durezol] besifloxaci 2020-0 Yes 0 Memori a n 6 MG/ML 7-22 Refill(s) l Ophthalmic 14:40: [place] Suspension 00 [Besivance] nepafenac 3 2020-0 Yes 0 Memori a MG/ML 7-22 Refill(s) l Ophthalmic 14:40: [facility] Suspension 00 [Ilevro] diflupredna 2020-0 Yes 0 Memori a te 0.5 7-22 Refill(s) l MG/ML 14:40: [place] Ophthalmic 00 Suspension [Durezol] besifloxaci 2020-0 Yes 0 Memori a n 6 MG/ML 7-22 Refill(s) l Ophthalmic 14:40: [facility] Suspension 00 [Besivance] gabapentin 2020-0 Yes 100 mg = 1 M emoria 100 MG Oral 6-17 cap, PO, l Capsule 21:23: TID, # 90 Mayra nn 00 cap, 3 Refill(s), Pharmacy: [id number], 177.8, cm, 01/29/20 15:39:00 CDT, Height, 75.455, kg, 01/29/20 15:39:00 CDT, Weight gabapentin 2020-0 Yes 100 mg = 1 M emoria 100 MG Oral 6-17 cap, PO, l Capsule 21:23: TID, # 90 Mayra nn 00 cap, 3 Refill(s), Pharmacy: [facility], 177.8, cm, 01/29/20 15:39:00 CDT, Height, 75.455, kg, 01/29/20 15:39:00 CDT, Weight gabapentin 2020-0 Yes 100 mg = 1 M emoria 100 MG Oral 6-17 cap, PO, l Capsule 21:23: TID, # 90 Mayra nn 00 cap, 3 Refill(s), Pharmacy: [facility], 177.8, cm, 01/29/20 15:39:00 CDT, Height, 75.455, kg, 01/29/20 15:39:00 CDT, Weight gabapentin 2020-0 Yes 100 mg = 1 M emoria 100 MG Oral 6-17 cap, PO, l Capsule 21:23: TID, # 90 Mayra nn 00 cap, 3 Refill(s), Pharmacy: [facility], 177.8, cm, 01/29/20 15:39:00 CDT, Height, 75.455, kg, 01/29/20 15:39:00 CDT, Weight gabapentin 2020-0 Yes 100 mg = 1 M emoria 100 MG Oral 6-17 cap, PO, l Capsule 21:23: TID, # 90 Mayra nn 00 cap, 3 Refill(s), Pharmacy: [facility], 177.8, cm, 01/29/20 15:39:00 CDT, Height, 75.455, kg, 01/29/20 15:39:00 CDT, Weight gabapentin 2020-0 Yes 100 mg = 1 M emoria 100 MG Oral 6-17 cap, PO, l Capsule 21:23: TID, # 90 Mayra nn 00 cap, 3 Refill(s), Pharmacy: [facility], 177.8, cm, 01/29/20 15:39:00 CDT, Height, 75.455, kg, 01/29/20 15:39:00 CDT, Weight gabapentin 2020-0 Yes 100 mg = 1 M emoria 100 MG Oral 6-17 cap, PO, l Capsule 21:23: TID, # 90 Mayra nn 00 cap, 3 Refill(s), Pharmacy: [facility] #[id number], 177.8, cm, 01/29/20 15:39:00 CDT, Height, 75.455, kg, 01/29/20 15:39:00 CDT, Weight gabapentin 2019- Yes 100 mg = 1 M emoria 100 MG Oral 6-17 cap, PO, l Capsule 21:23: TID, # 90 Mayra nn 00 cap, 3 Refill(s), Pharmacy: [facility] #[id number], 177.8, cm, 01/29/20 15:39:00 CDT, Height, 75.455, kg, 01/29/20 15:39:00 CDT, Weight brinzolamid 2018-08 Yes 0 Memori a e 10 MG/ML 1-13 Refill(s) l Ophthalmic 16:29: [place] Suspension 00 [Azopt] Brimonidine 2018-08 Yes 0 Memori a tartrate 2 1-13 Refill(s) l MG/ML / 16:29: [place] Timolol 5 00 MG/ML Ophthalmic Solution [Combigan] netarsudil 2018-08 Yes 0 Memoria mesylate 1-13 Refill(s) l 0.285 MG/ML 16:29: Markus n Ophthalmic 00 Solution [Rhopressa] acetaZOLAMI 2018-08 Yes 0 Memori a DE 500 mg 1-13 Refill(s) l oral 16:29: [facility] capsule, 00 extended release doxycycline 2018-08 Yes 0 Memori a hyclate 50 1-13 Refill(s) l MG Oral 16:29: [facility] Capsule 00 brinzolamid 2018-08 Yes 0 Memori a e 10 MG/ML 1-13 Refill(s) l Ophthalmic 16:29: [place] Suspension 00 [Azopt] Brimonidine 2018-08 Yes 0 Memori a tartrate 2 1-13 Refill(s) l MG/ML / 16:29: [facility] Timolol 5 00 MG/ML Ophthalmic Solution [Combigan] netarsudil 2018-08 Yes 0 Memoria mesylate 1-13 Refill(s) l 0.285 MG/ML 16:29: Markus n Ophthalmic 00 Solution [Rhopressa] acetaZOLAMI 2018-08 Yes 0 Memori a DE 500 mg 1-13 Refill(s) l oral 16:29: [place] capsule, 00 extended release doxycycline 2018-08 Yes 0 Memori a hyclate 50 1-13 Refill(s) l MG Oral 16:29: [facility] Capsule 00 Combigan 2018-08 Yes 0 Memoria ophthalmic 1-13 Refill(s) l solution 16:29: [place] 00 Rhopressa 2018-08 Yes 0 Memoria 0.02% 1-13 Refill(s) l ophthalmic 16:29: [facility] solution 00 brinzolamid 2018-08 Yes 0 Memori a e 10 MG/ML 1-13 Refill(s) l Ophthalmic 16:29: [place] Suspension 00 [Azopt] Brimonidine 2018-08 Yes 0 Memori a tartrate 2 1-13 Refill(s) l MG/ML / 16:29: [facility] Timolol 5 00 MG/ML Ophthalmic Solution [Combigan] netarsudil 2018-08 Yes 0 Memoria mesylate 1-13 Refill(s) l 0.285 MG/ML 16:29: Markus n Ophthalmic 00 Solution [Rhopressa] acetaZOLAMI 2018-08 Yes 0 Memori a DE 500 mg 1-13 Refill(s) l oral 16:29: [facility] capsule, 00 extended release doxycycline 2018-08 Yes 0 Memori a hyclate 50 1-13 Refill(s) l MG Oral 16:29: [place] Capsule 00 Combigan 2018-08 Yes 0 Memoria ophthalmic 1-13 Refill(s) l solution 16:29: [facility] 00 Rhopressa 2018-08 Yes 0 Memoria 0.02% 1-13 Refill(s) l ophthalmic 16:29: [place] solution 00 brinzolamid 2018-08 Yes 0 Memori a e 10 MG/ML 1-13 Refill(s) l Ophthalmic 16:29: [facility] Suspension 00 [Azopt] Brimonidine 2018-08 Yes 0 Memori a tartrate 2 1-13 Refill(s) l MG/ML / 16:29: [place] Timolol 5 00 MG/ML Ophthalmic Solution [Combigan] netarsudil 2018-08 Yes 0 Memoria mesylate 1-13 Refill(s) l 0.285 MG/ML 16:29: Markus n Ophthalmic 00 Solution [Rhopressa] acetaZOLAMI 2018-08 Yes 0 Memori a DE 500 mg 1-13 Refill(s) l oral 16:29: [facility] capsule, 00 extended release doxycycline 2018-08 Yes 0 Memori a hyclate 50 1-13 Refill(s) l MG Oral 16:29: [place] Capsule 00 Combigan 2018-08 Yes 0 Memoria ophthalmic 1-13 Refill(s) l solution 16:29: [facility] 00 Rhopressa 2018-08 Yes 0 Memoria 0.02% 1-13 Refill(s) l ophthalmic 16:29: [place] solution 00 brinzolamid 2018-08 Yes 0 Memori a e 10 MG/ML 1-13 Refill(s) l Ophthalmic 16:29: [place] Suspension 00 [Azopt] Brimonidine 2018-08 Yes 0 Memori a tartrate 2 1-13 Refill(s) l MG/ML / 16:29: [place] Timolol 5 00 MG/ML Ophthalmic Solution [Combigan] netarsudil 2018-08 Yes 0 Memoria mesylate 1-13 Refill(s) l 0.285 MG/ML 16:29: Markus n Ophthalmic 00 Solution [Rhopressa] acetaZOLAMI 2018-08 Yes 0 Memori a DE 500 mg 1-13 Refill(s) l oral 16:29: [place] capsule, 00 extended release doxycycline 2018-08 Yes 0 Memori a hyclate 50 1-13 Refill(s) l MG Oral 16:29: [facility] Capsule 00 Combigan 2018-08 Yes 0 Memoria ophthalmic 1-13 Refill(s) l solution 16:29: [place] 00 Rhopressa 2018-08 Yes 0 Memoria 0.02% 1-13 Refill(s) l ophthalmic 16:29: [place] solution 00 brinzolamid 2018-08 Yes 0 Memori a e 10 MG/ML 1-13 Refill(s) l Ophthalmic 16:29: [facility] Suspension 00 [Azopt] Brimonidine 2018-08 Yes 0 Memori a tartrate 2 1-13 Refill(s) l MG/ML / 16:29: [place] Timolol 5 00 MG/ML Ophthalmic Solution [Combigan] netarsudil 2018-08 Yes 0 Memoria mesylate 1-13 Refill(s) l 0.285 MG/ML 16:29: Markus n Ophthalmic 00 Solution [Rhopressa] acetaZOLAMI 2018-08 Yes 0 Memori a DE 500 mg 1-13 Refill(s) l oral 16:29: [facility] capsule, 00 extended release doxycycline 2018-08 Yes 0 Memori a hyclate 50 1-13 Refill(s) l MG Oral 16:29: [place] Capsule 00 Combigan 2018-08 Yes 0 Memoria ophthalmic 1-13 Refill(s) l solution 16:29: [place] 00 Rhopressa 2018-08 Yes 0 Memoria 0.02% 1-13 Refill(s) l ophthalmic 16:29: [place] solution 00 brinzolamid 2018-08 Yes 0 Memori a e 10 MG/ML 1-13 Refill(s) l Ophthalmic 16:29: [place] Suspension 00 [Azopt] Brimonidine 2018-08 Yes 0 Memori a tartrate 2 1-13 Refill(s) l MG/ML / 16:29: [place] Timolol 5 00 MG/ML Ophthalmic Solution [Combigan] netarsudil 2018-08 Yes 0 Memoria mesylate 1-13 Refill(s) l 0.285 MG/ML 16:29: Markus n Ophthalmic 00 Solution [Rhopressa] acetaZOLAMI 2018-08 Yes 0 Memori a DE 500 mg 1-13 Refill(s) l oral 16:29: [facility] capsule, 00 extended release doxycycline 2018-08 Yes 0 Memori a hyclate 50 1-13 Refill(s) l MG Oral 16:29: [place] Capsule 00 Combigan 2018-08 Yes 0 Memoria ophthalmic 1-13 Refill(s) l solution 16:29: [place] 00 Rhopressa 2018-08 Yes 0 Memoria 0.02% 1-13 Refill(s) l ophthalmic 16:29: [place] solution 00 brinzolamid 2018-08 Yes 0 Memori a e 10 MG/ML 1-13 Refill(s) l Ophthalmic 16:29: [place] Suspension 00 [Azopt] Brimonidine 2018-08 Yes 0 Memori a tartrate 2 1-13 Refill(s) l MG/ML / 16:29: [place] Timolol 5 00 MG/ML Ophthalmic Solution [Combigan] netarsudil 2018-08 Yes 0 Memoria mesylate 1-13 Refill(s) l 0.285 MG/ML 16:29: Markus n Ophthalmic 00 Solution [Rhopressa] acetaZOLAMI 2018-08 Yes 0 Memori a DE 500 mg 1-13 Refill(s) l oral 16:29: [place] capsule, 00 extended release doxycycline 2018-08 Yes 0 Memori a hyclate 50 1-13 Refill(s) l MG Oral 16:29: [facility] Capsule 00 Combigan 2018-08 Yes 0 Memoria ophthalmic 1-13 Refill(s) l solution 16:29: [facility] 00 Rhopressa 2018-08 Yes 0 Memoria 0.02% 1-13 Refill(s) l ophthalmic 16:29: [facility] solution 00 gabapentin 0 Yes 100 mg = 1 M emoria 100 MG Oral 6-26 cap, PO, l Capsule 14:22: TID, # 270 Herm bradley 41 cap, 3 Refill(s), Pharmacy: [facility] #[id number] gabapentin 2019-0 Yes 100 mg = 1 M emoria 100 MG Oral 6-26 cap, PO, l Capsule 14:22: TID, # 270 Herm bradley 41 cap, 3 Refill(s), Pharmacy: [facility] #[id number] gabapentin 2019-0 Yes 100 mg = 1 M emoria 100 MG Oral 6-26 cap, PO, l Capsule 14:22: TID, # 270 Herm bradley 41 cap, 3 Refill(s), Pharmacy: [facility] #[id number] gabapentin 2019-0 Yes 100 mg = 1 M emoria 100 MG Oral 6-26 cap, PO, l Capsule 14:22: TID, # 270 Herm bradley 41 cap, 3 Refill(s), Pharmacy: [facility] #[id number] gabapentin 2019-0 Yes 100 mg = 1 M emoria 100 MG Oral 6-26 cap, PO, l Capsule 14:22: TID, # 270 Herm bradley 41 cap, 3 Refill(s), Pharmacy: [facility] #[id number] gabapentin 2019-0 Yes 100 mg = 1 M emoria 100 MG Oral 6-26 cap, PO, l Capsule 14:22: TID, # 270 Herm bradley 41 cap, 3 Refill(s), Pharmacy: [facility] #[id number] gabapentin 2019-0 Yes 100 mg = 1 M emoria 100 MG Oral 6-26 cap, PO, l Capsule 14:22: TID, # 270 Herm bradley 41 cap, 3 Refill(s), Pharmacy: [facility] #[id number] gabapentin 2018-0 Yes 100 mg = 1 M emoria 100 MG Oral 6-26 cap, PO, l Capsule 14:22: TID, # 270 Herm bradley 41 cap, 3 Refill(s), Pharmacy: [facility] #[id number] vitamin A 2018-0 Yes 0 Memoria 2-28 Refill(s) l 21:54: [place] 00 vitamin A 2018-0 Yes 0 Memoria 2-28 Refill(s) l 21:54: [place] 00 vitamin A 2017-0 Yes 0 Memoria 2-28 Refill(s) l 21:54: [facility] 00 vitamin A 2017-0 Yes 0 Memoria 2-28 Refill(s) l 21:54: [place] 00 vitamin A 2017-0 Yes 0 Memoria 2-28 Refill(s) l 21:54: [place] 00 vitamin A 2017-0 Yes 0 Memoria 2-28 Refill(s) l 21:54: [place] 00 vitamin A 2017-0 Yes 0 Memoria 2-28 Refill(s) l 21:54: [place] 00 Immunizations Ordered Immunization Filled Immunization Date Status Commen ts Source Name Name MIJS-EaG-8XYXBY-19mR 2020-10-06 Completed [facility] NA-1273vaxMODERNA 00:00:00 [place] LIVK-SvJ-3GOCQF-19mR 2020-10-06 Completed [facility] NA-1273vaxMODERNA 00:00:00 [place] JIXQ-SlU-1DKWTD-19mR 2020-10-06 Completed [facility] NA-1273vaxMODERNA 00:00:00 [place] UVIB-HnQ-9GHDJQ-19mR 2020-10-06 Completed [facility] NA-1273vaxMODERNA 00:00:00 [place] ONOE-YvO-8EPBXM-19mR 2020-10-06 Completed [facility] NA-1273vaxMODERNA 00:00:00 [place] CYKA-XgO-0VMJAG-19mR 2020-10-06 Completed [facility] NA-1273vaxMODERNA 00:00:00 [place] UUES-ZzT-0NAPSZ-19mR 2020-10-06 Completed [facility] NA-1273vaxMODERNA 00:00:00 [place] JSCC-PaP-3XMDUP-19mR 2020-10-06 Completed [facility] NA-1273vaxMODERNA 00:00:00 [place] VXWG-QnA-0KGJNR-19mR 2020-09-08 Completed [facility] NA-1273vaxMODERNA 00:00:00 [place] YVKN-FiX-8IZGCA-19mR 2020-09-08 Completed [facility] NA-1273vaxMODERNA 00:00:00 [place] MSOI-WxQ-1GTJZF-19mR 2020-09-08 Completed [facility] NA-1273vaxMODERNA 00:00:00 [place] ZRRL-YsE-0DIORE-19mR 2020-09-08 Completed [facility] rial NA-1273vaxMODERNA 00:00:00 [place] TKQQ-RfI-6HMHKT-19mR 2020-09-08 Completed [facility] NA-1273vaxMODERNA 00:00:00 [place] YOWF-IlV-7UOTNL-19mR 2020-09-08 Completed [facility] rial NA-1273vaxMODERNA 00:00:00 [place] QPFL-HpE-8TZCHA-19mR 2020-09-08 Completed [facility] NA-1273vaxMODERNA 00:00:00 [place] RRQP-EwC-4VUPCI-19mR 2020-09-08 Completed [facility] NA-1273vaxMODERNA 00:00:00 [place] Vital Signs Vital Name Observation Time Observation Value Comments Source HEIGHT 2022-08-25 15:32:00 177.8 cm WEIGHT 2022-08-25 15:32:00 81.647 kg HEIGHT 2022-08-25 15:32:00 177.8 cm WEIGHT 2022-08-25 15:32:00 81.647 kg HEIGHT 2022-04-20 12:35:00 177.8 cm WEIGHT 2022-04-20 12:35:00 81.647 kg HEIGHT 2022-04-20 12:35:00 177.8 cm WEIGHT 2022-04-20 12:35:00 81.647 kg HEIGHT 2022-04-20 12:35:00 177.8 cm WEIGHT 2022-04-20 12:35:00 81.647 kg HEIGHT 2022-03-16 15:23:00 177.8 cm WEIGHT 2022-03-16 15:23:00 81.647 kg HEIGHT 2022-03-16 15:23:00 177.8 cm WEIGHT 2022-03-16 15:23:00 81.647 kg HEIGHT 2022-03-16 15:23:00 177.8 cm WEIGHT 2022-03-16 15:23:00 81.647 kg Systolic blood 2022-09-01 15:10:00 129 mm[Hg] [facility] Diastolic blood 2022-09-01 15:10:00 61 mm[Hg] [facility] Heart rate 2022-09-01 15:10:00 65 /min [facility] Respiratory rate 2022-09-01 15:10:00 14 /min [facility] Oxygen saturation in 2022-09-01 15:10:00 97 /min [facility] Arterial blood by [facility] Pulse oximetry Body temperature 2022-09-01 14:50:00 36.39 [place] Body height 2022-08-25 15:32:00 177.8 cm [facility] Body weight 2022-08-25 15:32:00 81.647 kg [facility] BMI 2022-08-25 15:32:00 25.83 kg/m2 [facility] Systolic blood 2022-04-25 13:00:00 177 mm[Hg] [facility] Diastolic blood 2022-04-25 13:00:00 76 mm[Hg] [facility] Heart rate 2022-04-25 13:00:00 42 /min [facility] Respiratory rate 2022-04-25 13:00:00 8 /min [facility] Oxygen saturation in 2022-04-25 13:00:00 96 /min [facility] Arterial blood by Medical Ce nter Pulse oximetry Body temperature 2022-04-25 12:40:00 36.11 Dora [facility] Body height 2022-04-20 12:35:00 177.8 cm [facility] Body weight 2022-04-20 12:35:00 81.647 kg [facility] BMI 2022-04-20 12:35:00 25.83 kg/m2 [facility] Height 2022-02-21 15:16:00 175.26 cm [facility] Weight 2022-02-21 15:16:00 [facility] BMI Calculated 2022-02-21 15:16:00 [facility] Systolic (mm Hg) 2022-01-27 19:52:00 Abdullahi [facility] Diastolic (mm Hg) 2022-01-27 19:52:00 [facility] Heart Rate 2022-01-27 19:52:00 [facility] Respitory Rate 2022-01-27 19:52:00 [facility] Height 2022-01-27 19:52:00 176.53 cm [facility] Weight 2022-01-27 19:52:00 [facility] BMI Calculated 2022-01-27 19:52:00 [facility] Height 2021-03-01 14:23:00 175.26 cm [facility] Weight 2021-03-01 14:23:00 [facility] BMI Calculated 2021-03-01 14:23:00 [facility] Height 2020-03-04 14:31:00 175.26 cm [facility] Weight 2020-03-04 14:31:00 [facility] BMI Calculated 2020-03-04 14:31:00 [facility] Systolic (mm Hg) 2020-01-29 20:39:00 Abdullahi [facility] Diastolic (mm Hg) 2020-01-29 20:39:00 [facility] Heart Rate 2020-01-29 20:39:00 [facility] Respitory Rate 2020-01-29 20:39:00 [facility] Temperature Oral (F) 2020-01-29 20:39:00 98.5 F [facility] Height 2020-01-29 20:39:00 177.8 cm [facility] Weight 2020-01-29 20:39:00 [facility] BMI Calculated 2020-01-29 20:39:00 [facility] Height 2019-07-22 15:14:00 175.26 cm [facility] Weight 2019-07-22 15:14:00 [facility] BMI Calculated 2019-07-22 15:14:00 [facility] Systolic (mm Hg) 2019-06-26 16:20:00 Abdullahi [facility] Diastolic (mm Hg) 2019-06-26 16:20:00 [facility] Heart Rate 2019-06-26 16:20:00 [facility] Height 2019-06-26 16:20:00 175.26 cm [facility] Weight 2019-06-26 16:20:00 [facility] BMI Calculated 2019-06-26 16:20:00 [facility] Weight 2019-02-06 13:55:00 [facility] BMI Calculated 2019-02-06 13:55:00 [facility] Height 2019-02-06 13:55:00 175.26 cm [facility] Respitory Rate 2019-02-06 13:55:00 [facility] Systolic (mm Hg) 2019-02-06 13:55:00 Abdullahi [facility] Diastolic (mm Hg) 2019-02-06 13:55:00 [facility] Heart Rate 2019-02-06 13:55:00 [facility] Procedures Procedure Date / Time Performing Clinician Source Performed REVISION, AQUEOUS SHUNT 2022-09-01 14:45:00 Blane Melendez [facility] REVISION, AQUEOUS SHUNT 2022-09-01 14:10:00 Blane Melendez [facility] INSERTION, TUBE SHUNT, EYE, 2022-04-25 11:40:00 Blane Melendez [facility] WITH CORNEAL PATCH GRAFT [facility] APPLICATION INSERTION, TUBE SHUNT, EYE, 2022-04-04 10:34:00 Blane Melendez [facility] WITH CORNEAL PATCH GRAFT [facility] APPLICATION Simple uroflowmetry (UFR) 2019-07-02 18:49:00 [facility] (eg, stop-watch flow rate, mechanical uroflowmeter) Cystourethroscopy (separate 2019-07-02 18:49:00 [facility] procedure) TURP - Transurethral [facility] resection of prostate Plan of Care Planned Activity Planned Date Details Comments Source Future Scheduled 2023-09-[address] [facility] 00:00[facility]00 [facility] (12+) [code = Tobacco Cessation Counseling and Screening (12+)] Future Scheduled 2023-08-[address] [facility] 00:00:00 [facility] Scre[facility] (12+) [code = Tobacco Cessation Counseling and Screening (12+)] Future Scheduled 2023-08-[address] [facility] 00:00:00 [facility] Scre[facility] (12+) [code = Tobacco Cessation Counseling and Screening (12+)] Future Scheduled 2023-04-[address] [facility] 00:00:00 [facility] Scre[facility] (12+) [code = Tobacco Cessation Counseling and Screening (12+)] Future Scheduled 2023-04-[address] [facility] 00:00:00 [facility] Screening (12+) [code = Tobacco Cessation Counseling and Screening (12+)] Future Scheduled 2023-04-[address] [facility] 00:00:00 [facility] Screening (12+) [code = Tobacco Cessation Counseling and Screening (12+)] Future Scheduled 2023-04-[address] [facility] 00:00:00 (Season Ended) [code = [facility] INFLUENZA VACCINE (Season Ended)] Future Scheduled 2022-08-[address] [facility] 00:00:00 WELLNESS (YEAR 2 or Medical Center FIRST YEAR if no IPPE) [code = MEDICARE ANNUAL WELLNESS (YEAR 2 or FIRST YEAR if no IPPE)] Future Scheduled 2022-08-[address] [facility] 00:00:00 WELLNESS (YEAR 2 or Medical Center FIRST YEAR if no IPPE) [code = MEDICARE ANNUAL WELLNESS (YEAR 2 or FIRST YEAR if no IPPE)] Future Scheduled 2022-08-[address] [facility] 00:00:00 WELLNESS (YEAR 2 or Medical Center FIRST YEAR if no IPPE) [code = MEDICARE ANNUAL WELLNESS (YEAR 2 or FIRST YEAR if no IPPE)] Future Scheduled 2022-08-[address] [facility] 00:00:00 (12+) [code = Medical Center DEPRESSION SCREENING (12+)] Future Scheduled 2022-08-14 FALLS RISK SCREENING [facility] 00:00:00 [code = FALLS RISK Medical C enter SCREENING] Future Scheduled 2022-08-[address] [facility] 00:00:00 (12+) [code = Medical Center DEPRESSION SCREENING (12+)] Future Scheduled 2022-08-14 F[place] RIS[place] SCREENING [facility] 00:00:00 [code = FALLS RISK Medical C enter SCREENING] Future Scheduled 2022-08-[address] [facility] 00:00:00 (12+) [code = Medical Center DEPRESSION SCREENING (12+)] Future Scheduled 2022-08-14 F[address] SCREENING [facility] 00:00:00 [code = FALLS RISK Medical C enter SCREENING] Future Scheduled 2022-08-[address] [facility] 00:00:00 (12+) [code = Medical Center DEPRESSION SCREENING (12+)] Future Scheduled 2022-08-14 F[address] SCREENING [facility] 00:00:00 [code = FALLS RISK Medical C enter SCREENING] Future Scheduled 2022-08-[address] [facility] 00:00:00 (12+) [code = Medical Center DEPRESSION SCREENING (12+)] Future Scheduled 2022-08-14 F[address] SCREENING [facility] 00:00:00 [code = FALLS RISK Medical C enter SCREENING] Future Scheduled 2022-08-[address] [facility] 00:00:00 (12+) [code = Medical Center DEPRESSION SCREENING (12+)] Future Scheduled 2022-08-14 F[address]K SCREENING [facility] 00:00:00 [code = FALLS RISK Medical C enter SCREENING] Future Scheduled 2022-04-14 INFLUENZA VACCINE (#1) [facility]00 [code = INFLUENZA Medical Ce nter VACCINE (#1)] Future Scheduled 2022-04-14 INFLUENZA VACCINE (#1) [facility] 00:00:00 [code = INFLUENZA Medical Ce nter VACCINE (#1)] Future Scheduled 2022-04-14 INFLUENZA VACCINE (#1) [facility] 00:00:00 [code = INFLUENZA Medical Ce nter VACCINE (#1)] Future Scheduled 2022-04-14 INFLUENZA VACCINE (#1) [facility] 00:00:00 [code = INFLUENZA Medical Ce nter VACCINE (#1)] Future Scheduled 2022-04-14 INFLUENZA VACCINE (#1) [facility] 00:00:00 [code = INFLUENZA Medical Ce nter VACCINE (#1)] Future Scheduled 2021-10-19 COVID-19 VACCINE (4 [facility] series) [code = COVID-19 VACCINE (4 - Booster for [employer] series)] Future Scheduled 2021-10-19 COVID-19 VACCINE (4 [facility]00 [facility] series) [code = COVID-19 VACCINE (4 - Booster for [employer] series)] Future Scheduled 2021-10-19 COVID-19 VACCINE (4 - [facility]00 [facility] series) [code = COVID-19 VACCINE (4 - Booster for [employer] series)] Future Scheduled 2021-10-19 COVID-19 VACCINE (4 - [facility]00 [facility] series) [code = COVID-19 VACCINE (4 - Booster for [employer] series)] Future Scheduled 2021-10-19 COVID-19 VACCINE (4 - [facility]00 [facility] series) [code = COVID-19 VACCINE (4 - Booster for [employer] series)] Future Scheduled 2021-08-16 COVID-19 VACCINE (4 - [facility]00 [facility] series) [code = COVID-19 VACCINE (4 - Booster for [employer] series)] Future Scheduled 2021-08-[address] [facility] 00:00:00 WELLNESS (YEAR 2 or Medical Center FIRST YEAR if no IPPE) [code = MEDICARE ANNUAL WELLNESS (YEAR 2 or FIRST YEAR if no IPPE)] Future Scheduled 2021-08-14 Medicare IPPE (WELCOME [facility]:00 TO MEDICARE) [code = Medical Center Medicare IPPE (WELCOME TO MEDICARE)] Future Scheduled 2021-08-[address] [facility] 00:00:00 WELLNESS (YEAR 2 or Medical Center FIRST YEAR if no IPPE) [code = MEDICARE ANNUAL WELLNESS (YEAR 2 or FIRST YEAR if no IPPE)] Future Scheduled 2021-08-14 Medicare IPPE (WELCOME [facility] 00:[facility]:00 TO MEDICARE) [code = Medical Center Medicare IPPE (WELCOME TO MEDICARE)] Future Scheduled 2021-08-[address] [facility] 00:00:00 WELLNESS (YEAR 2 or Medical Center FIRST YEAR if no IPPE) [code = MEDICARE ANNUAL WELLNESS (YEAR 2 or FIRST YEAR if no IPPE)] Future Scheduled 2021-08-14 Medicare IPPE (WELCOME [facility] 00:00:00 TO MEDICARE) [code = Medical Center Medicare IPPE (WELCOME TO MEDICARE)] Future Scheduled 2010 PNEUMOCOCCAL 65+ YRS [facility] 00:00:00 (1 - PCV) [code = Medical Ce nter PNEUMOCOCCAL 65+ YRS (1 - PCV)] Future Scheduled 2010 PNEUMOCOCCAL 65+ YRS [facility] 00:00:00 (1 - PCV) [code = Medical Ce nter PNEUMOCOCCAL 65+ YRS (1 - PCV)] Future Scheduled 2010 PNEUMOCOCCAL 65+ YRS [facility] 00:00:00 (1 - PCV) [code = Medical Ce nter PNEUMOCOCCAL 65+ YRS (1 - PCV)] Future Scheduled 2010 PNEUMOCOCCAL 65+ YRS [facility] 00:00:00 (1 - PCV) [code = Medical Ce nter PNEUMOCOCCAL 65+ YRS (1 - PCV)] Future Scheduled 2010 PNEUMOCOCCAL 65+ YRS [facility] 00:00:00 (1 - PCV) [code = Medical Ce nter PNEUMOCOCCAL 65+ YRS (1 - PCV)] Future Scheduled 2010 PNEUMOCOCCAL 65+ YRS [facility] 00:00:00 (1 - PCV) [code = Medical Ce nter PNEUMOCOCCAL 65+ YRS (1 - PCV)] Future Scheduled 1995 SHINGLES VACCINES ([address] [facility] 00:00:00 of 2) [code = SHINGLES Medic al Center VACCINES (1 of 2)] Future Scheduled 1995 SHINGLES VACCINES ([address] [facility] 00:00:00 of 2) [code = SHINGLES Medic al Center VACCINES (1 of 2)] Future Scheduled 1995 SHINGLES VACCINES ([address] [facility] 00:00:00 of 2) [code = SHINGLES Medic al Center VACCINES (1 of 2)] Future Scheduled 1995 SHINGLES VACCINES ([address] [facility] 00:00:00 of 2) [code = SHINGLES Medic al Center VACCINES (1 of 2)] Future Scheduled 1995 SHINGLES VACCINES ([address] [facility] 00:00:00 of 2) [code = SHINGLES Medic al Center VACCINES (1 of 2)] Future Scheduled 1995 SHINGLES VACCINES ([address] [facility] 00:00:00 of 2) [code = SHINGLES Medic al Center VACCINES (1 of 2)] Future Scheduled 1964 DTAP/TDAP/TD VACCINES [facility] 00:00:00 (1 - Tdap) [code = Medical C enter DTAP/TDAP/TD VACCINES (1 - Tdap)] Future Scheduled 1964 DTAP/TDAP/TD VACCINES [facility] 00:00:00 (1 - Tdap) [code = Medical C enter DTAP/TDAP/TD VACCINES (1 - Tdap)] Future Scheduled 1964 DTAP/TDAP/TD VACCINES [facility] 00:00:00 (1 - Tdap) [code = Medical C enter DTAP/TDAP/TD VACCINES (1 - Tdap)] Future Scheduled 1964 DTAP/TDAP/TD VACCINES [facility] 00:00:00 (1 - Tdap) [code = Medical C enter DTAP/TDAP/TD VACCINES (1 - Tdap)] Future Scheduled 1964 DTAP/TDAP/TD VACCINES [facility] 00:00:00 (1 - Tdap) [code = Medical C enter DTAP/TDAP/TD VACCINES (1 - Tdap)] Future Scheduled 1964 DTAP/TDAP/TD VACCINES [facility] 00:00:00 (1 - Tdap) [code = Medical C enter DTAP/TDAP/TD VACCINES (1 - Tdap)] Future Scheduled 1963 HEPATITIS C SCRE[facility]ING [facility] 00:00:00 [code = HEPATITIS C Medical Center SCREENING] Future Scheduled 1963 HEPATITIS C [facility]CRE[facility]ING [facility] 00:00:00 [code = HEPATITIS C Medical Center SCREENING] Future Scheduled 1963 HEPATITIS C [facility] 00:00:00 [code = HEPATITIS C Medical Center SCREENING] Future Scheduled 1963 HEPATITIS C [facility] 00:00:00 [code = HEPATITIS C Medical Center SCREENING] Future Scheduled 1963 HEPATITIS C [facility] 00:00:00 [code = HEPATITIS C Medical Center SCREENING] Future Scheduled 1963 HEPATITIS C [facility] 00:00:00 [code = HEPATITIS C Medical Center SCREENING] Encounters Start End Encounter Admission Attending Care Care Encounter Source Date/Time Date/Time Type Type Clinicians Facility Department ID 2022-03-21 Outpatient [facility] [id number] Common 16:38:02 [id number] [facility] 2021-10-22 Outpatient STLML[facility] [id number] Common 10:41:01 [facility] 2021-09-08 Outpatient STLMLC [facility] [id number] Common 13:46:35 [id number] [facility] 2023-02-20 2023-02-20 Outpatient MHIE MHIE [id number] Memoria 10:00:00 10:00:00 17 ingrid [facility] 2023-02-20 2023-02-20 Outpatient MHIE MHIE [id number] [facility]oria 10:00:00 10:00:00 17 ingrid Chance 2023-01-31 2023-01-31 Outpatient MHIE MHIE [id number] [facility]oria 14:30:00 14:30:00 15 ingrid Fletcher 2023-01-31 2023-01-31 Outpatient MHIE MHIE [id number] Memoria 14:30:00 14:30:00 15 ingrid Fletcher 2022-12-29 2022-12-29 Outpatient NORIS MELENDEZ [facility] [id number] [facility] 10:03:38 12:10:16 BLANE Bee 2022-12-20 2022-12-20 Ambulatory MHIE MNA [id number] Memoria 15:00:00 15:00:00 Pre-Reg Neurology 19 l Ellie Fletcher 2022-12-20 2022-12-20 Outpatient MHIE MHIE [id number] [facility]oria 10:00:00 10:00:00 19 l Chance 2022-12-20 2022-12-20 Outpatient Rhea [facility] [id number] 10:00:00 10:00:00 James 19 Javon 2022-11-17 2022-11-17 Ambulatory MHIE MNA [id number] Memoria 14:15:00 14:15:00 Pre-Reg Neurology 18 l Ellie Fletcher 2022-11-17 2022-11-17 Outpatient MHIE MHIE [id number] [facility]oria 09:15:00 09:15:00 18 ingrid Fletcher 2022-11-17 2022-11-17 Outpatient Rhea [facility] [id number] 09:15:00 09:15:00 James 18 Javon 2022-10-21 2022-10-21 Outpatient [facility] [id number] [facility] 14:23:57 15:41:51 BLANE herrmann of Medicin e 2022-10-18 2022-10-19 Outpt Diag MHIE [facility] [id number] Memoria 15:59:00 05:59:00 Services Outpatient 00 l Bev Fletcher [place] 2022-10-18 2022-10-18 Outpatient [facility] [id number] 09:59:00 23:59:00 [facility] 00 2022-09-09 2022-09-12 Outpatient AL [facility] [id number] [facility] 13:48:22 07:01:56 BLANE herrmann of Medicin e 2022-09-02 2022-09-02 Outpatient AL [facility] [id number] [facility] 13:42:21 13:42:21 BLANE [facility]rmann of Medicin e 2022-09-01 2022-09-01 [id number] [place] [address] 14:35:00 15:33:00 [facility] 2022-09-01 2022-09-01 Outpatient AL, [facility] Surgery [id number] SLE 12:53:00 15:15:00 BLANE 2022-09-01 2022-09-01 [facility] [id number] 12:53:00 15:15:00 Encounter [facility] 2022-09-01 2022-09-[address] [facility] [id number] 14:10:00 14:49:00 Event Brigitte Melendrez [facility] 2022-09-01 2022-09-01 Travel [facility] [id number] [facility] 00:[facility] 00:00:00 [facility] 2022-08-16 2022-08-16 Outpatient NORIS MELENDEZ [facility] [id number] [facility] 09:30:54 11:54:44 BLANE [facility]rmann [facility] Medicin e 2022-07-25 2022-07-25 Ambulatory MHIE [facility] [id number] Memoria 15:40:00 15:40:00 Pre-Reg Specialty 16 l Clinic [facility] 2022-07-25 2022-07-25 Ambulatory MHIE [facility] Multi [id number] Memoria 15:40:00 15:40:00 Pre-Reg Specialty 16 l Clinic [facility] 2022-07-25 2022-07-25 Outpatient MHIE MHIE [id number] Memoria 09:40:00 09:40:00 16 [facility] 2022-07-25 2022-07-25 [facility] [id number] 09:40:00 09:40:00 Belle L 16 2022-06-16 2022-06-16 Outpatient NORIS MELENDEZ [id number] [facility] 10:05:15 12:03:05 BLANE [facility] Medicin e 2022-05-24 2022-05-24 Outpatient NORIS MELENDEZ [id number] [facility] 10:08:28 11:21:34 BLANE [facility]rmann [facility] Medicin e 2022-05-12 2022-05-12 Outpatient AL [facility] [id number] [facility] 08:45:41 10:55:45 BLANE [place] [facility] Medicin e 2022-05-06 2022-05-06 Outpatient AL [facility] [id number] [facility] 10:37:20 11:30:50 BLANE [place] [facility] 2022-04-26 2022-04-26 Outpatient AL [facility] [id number] [facility] 09:08:47 10:17:48 BLANE [facility] [facility] 2022-04-25 2022-04-25 Surgery [facility] [id number] 12:18:00 13:23:00 [facility] 2022-04-25 2022-04-25 Surgery [facility] [id number] 12:18:00 13:23:00 [facility] 2022-04-25 2022-04-25 [facility] [id number] 09:16:00 13:08:00 Encounter [facility] 2022-04-25 2022-04-25 Outpatient [facility] Surgery [id number] [facility] 09:16:00 13:08:00 [facility] 2022-04-25 2022-04-25 [facility] [id number] 09:16:00 13:08:00 Encounter [facility] 2022-04-25 2022-04-25 Anesthesia [facility] [id number] 11:50:00 12:40:00 Event [facility] 2022-04-25 2022-04-25 [address] [facility] [id number] 11:50:00 12:40:00 Event Ind[facility] 2022-04-25 2022-04-25 Travel [facility] [id number] [facility] 00:00:00 00:00:00 [facility] 2022-04-25 2022-04-25 Travel [facility] [id number] [facility] 00:00:00 00:00:00 [facility] 2022-04-20 2022-04-20 Outpatient EL SLE SLE [id number] [facility] 12:40:41 23:59:00 2022-04-20 2022-04-20 [facility] [id number] 10:55:00 23:59:00 Encounter [facility] 2022-04-20 2022-04-20 [facility] [id number] 10:55:00 23:59:00 Encounter [facility] 2022-04-12 2022-04-12 Outpatient AL [facility] [id number] [facility] 09:29:31 10:17:18 BLANE [place] [facility] Medicin e 2022-04-05 2022-04-05 Outpatient AL [facility] [id number] [facility] 09:44:28 10:41:49 BLANE herrmann of Medicin e 2022-04-04 2022-04-04 Outpatient [facility] [id number] [facility] 08:38:00 23:59:00 Niallg e of Medicin e 2022-04-04 2022-04-04 [facility] [id number] 08:38:00 12:00:00 Encounter [facility] 2022-04-04 2022-04-04 [facility] [id number] 08:38:00 12:00:00 Encounter [facility] 2022-04-04 2022-04-04 Outpatient EL AL, SLE Surgery [id number] [facility] 08:38:00 12:00:00 BLANE 2022-04-04 2022-04-[address] [facility] [id number] 10:44:00 11:25:00 Event [facility] 2022-04-04 2022-04-[address] [facility] [id number] 10:44:00 11:25:00 Event [facility] 2022-04-042022-04-[address] [facility] [id number] 10:30:00 11:15:00 [facility] 2022-04-04 2022-04-[address] [facility] [id number] 10:30:00 11:15:00 [facility] 2022-04-04 2022-04-04 Travel [facility] [id number] [facility] 00:00:00 00:00:00 [facility] 2022-04-04 2022-04-04 Travel [facility] [id number] [facility] 00:00:00 00:00:00 [facility] 2022-03-16 2022-03-16 Outpatient EL [facility] [id number] [facility] 15:27:30 23:59:00 2022-03-16 2022-03-16 [facility] [id number] 14:55:00 23:59:00 Encounter [facility] 2022-03-16 2022-03-16 [facility] [id number] 14:55:00 23:59:00 Encounter [facility] 2022-02-21 2022-02-22 Outpatient nullFlavo [facility] Multi 40 [id number] Memoria 16:20:00 04:59:59 r Specialty 14 l [facility] 2022-02-21 2022-02-22 Outpatient nullFlavo [facility] 40 [id number] Memoria 16:20:00 04:59:59 r Specialty 14 l [facility] 2022-02-21 2022-02-21 Outpatient Staller, MHMG MG [id number] 11:20:00 23:59:59 Belle L 14 2022-02-21 2022-02-21 Outpatient MHIE MHIE [id number] [facility]oria 11:20:00 11:20:00 Marianela Fletcher 2022-01-27 2022-01-28 Outpatient nullFlavo MNA [id number] Memoria 20:00:00 04:59:59 r Neurology 12 l Ellie Wrightann 2022-01-27 2022-01-28 Outpatient nullFlavo MNA [id number] Memoria 20:00:00 04:59:59 r Neurology 12 ingrid Argueta [facility] 2022-01-27 2022-01-27 Outpatient JERSON Wilkerson MISCHER [id number] 15:00:00 23:59:59 James 12 Javon 2022-01-27 2022-01-27 Outpatient MHIE MHIE [id number] Memoria 15:00:00 15:00:00 12 ingrid Chance 2022-01-13 2022-01-13 Outpatient NORIS MELENDEZ [facility] [id number] [facility] 13:13:45 13:13:45 BLANE Bee 2021-03-01 2021-03-02 Outpatient nullFlavo [facility] 40 [id number] Memoria 14:40:00 04:59:59 r Specialty 13 [facility] 2021-03-01 2021-03-02 Outpatient nullFlavo [facility] 40 [id number] Memoria 14:40:00 04:59:59 r Specialty 13 [facility] 2021-03-01 2021-03-01 Outpatient Jana, MG [facility] [id number] 09:40:00 23:59:59 Belle Ingrid Adair 2021-03-01 2021-03-01 Outpatient MHIE MHIE [id number] Memoria 09:40:00 09:40:00 13 ingrid Roosevelt 2021-01-28 2021-01-28 Outpatient MHIE MHIE [id number] [facility]oria 15:30:00 15:30:00 11 ingrid Fletcher 2021-01-28 2021-01-28 Outpatient MHIE MHIE [id number] Memoria 15:30:00 15:30:00 10 ingrid Fletcher 2021-01-28 2021-01-28 Outpatient MHIE MHIE [id number] Memoria 15:30:00 15:30:00 11 ingrid Fletcher 2021-01-28 2021-01-28 Outpatient MHIE MHIE [id number] Memoria 15:30:00 15:30:00 10 ingrid Fletcher 2020-03-04 2020-03-05 Outpatient nullFlavo [facility] 40 [id number] Memoria 15:40:00 04:59:59 r Specialty 09 l [facility] 2020-03-04 2020-03-05 Outpatient nullFlavo [facility] 40 [id number] Memoria 15:40:00 04:59:59 r Specialty 09 l [facility] 2020-03-04 2020-03-04 Outpatient Jana, [place] [id number] 10:40:00 23:59:59 Belle L 2020-03-04 2020-03-04 Outpatient MHIE MHIE [id number] Memoria 10:40:00 10:40:00 09 [facility] 2020-01-29 2020-01-30 Outpatient nullFlavo MNA [id number] Memoria 20:30:00 04:59:59 r Neurology 02 ingrid [facility] 2020-01-29 2020-01-30 Outpatient nullFlavo MNA [id number] Memoria 20:30:00 04:59:59 r Neurology 02 [facility] 2020-01-29 2020-01-29 Outpatient PAXTON WilkersonSCHCARMEN MISCHER [id number] 15:30:00 23:59:59 James 02 Javon 2020-01-29 2020-01-29 Outpatient MHIE MHIE [id number] Memoria 15:30:00 15:30:00 02 ingrid Roosevelt 2019-07-22 2019-07-23 Outpatient nullFlavo [facility] 40 [id number] Memoria 15:00:00 05:59:59 r Specialty 08 l [facility] 2019-07-22 2019-07-23 Outpatient nullFlavo [facility] Multi 40 [id number] Memoria 15:00:00 05:59:59 r Specialty 08 l [facility] 2019-07-22 2019-07-22 Outpatient Jana, MG MG [id number] 09:00:00 23:59:59 Belle L 2019-07-22 2019-07-22 Outpatient MHIE MHIE [id number] Memoria 09:00:00 09:00:00 08 [facility] 2019-07-15 2019-07-15 Ambulatory nullFlavo [facility] Multi 40 [id number] Memoria 20:40:00 20:40:00 Pre-Reg r Specialty 07 l [facility] 2019-07-15 2019-07-15 Ambulatory nullFlavo MG Multi 40 [id number] Memoria 20:40:00 20:40:00 Pre-Reg r Specialty 07 l [facility] 2019-07-15 2019-07-15 Outpatient MHIE MHIE [id number] Memoria 14:40:00 14:40:00 07 ingrid Roosevelt 2019-07-15 2019-07-15 Outpatient Jana [facility] [id number] 14:40:00 14:40:00 Belle Colin 2019-07-09 2019-07-10 [place] [id number] Memoria 19:45:00 05:59:59 r Urology 06 [facility] 2019-07-09 2019-07-10 [place] [id number] Memoria 19:45:00 05:59:59 r Urology 06 [facility] 2019-07-09 2019-07-09 Outpatient Jana, [facility] [id number] 13:45:00 23:59:59 Belle L 06 2019-07-09 2019-07-09 Outpatient MHIE MHIE [id number] Memoria 13:45:00 13:45:00 06 ingrid Roosevelt 2019-07-02 2019-07-03 [place] [id number] Memoria 16:35:00 05:59:59 [facility] 2019-07-03 [place] [id number] Memoria 16:35:00 05:59:[address] [facility] 2019-07-02 Outpatient Jana, [facility] [id number] 10:35:00 23:59:59 Belle L 04 2019-07-02 2019-07-02 Outpatient MHIE MHIE [id number] Memoria 10:35:00 10:35:00 04 ingrid WrightRoosevelt 2019-07-02 2019-07-02 Outpatient MHIE MHIE [id number] Memoria 10:30:00 10:30:00 05 ingrid Fletcher 2019-07-02 2019-07-02 Outpatient MHIE MHIE [id number] Memoria 10:30:00 10:30:00 05 ingrid Fletcher 2019-06-26 2019-06-27 Outpatient nullFlavo [facility] Multi 40 [id number] Memoria 16:00:00 05:59:59 r Specialty 03 l [facility] 2019-06-26 2019-06-27 Outpatient nullFlavo [facility] Multi 40 [id number] Memoria 16:00:00 05:59:59 r Specialty 03 l [facility] 2019-06-26 2019-06-26 Outpatient Jana [facility] [id number] 10:00:00 23:59:59 Belle Ingrid Arias 2019-06-26 2019-06-26 Outpatient CORINNA CORINNA [id number] Memoria 10:00:00 10:00:00 03 ingrid Fletcher 2019-02-06 2019-02-07 Outpatient nullFlavo MNA [id number] Memoria 14:00:00 04:59:59 r Neurology 01 ingrid Wrightann 2019-02-06 2019-02-07 Outpatient nullFlavo MNA [id number] Memoria 14:00:00 04:59:59 r Neurology 01 ingrid Holt Chance 2019-02-06 2019-02-06 Outpatient JERSON Wilkerson [facility] [id number] 09:00:00 23:59:59 James Shawn Alejandro 2019-02-06 2019-02-06 Outpatient CORINNA IE [id number] Memoria 09:00:00 09:00:00 01 ingrid Chance 2018-02-06 2018-02-06 Outpatient CORINNA CORINNA [id number] Memoria 09:00:00 09:00:00 00 ingrid Chance 2018-02-06 2018-02-06 Outpatient IE IE [id number] Memoria 09:00:00 09:00:00 00 ingrid Fletcher Results Test Description Test Time Test Comments Results Result Comments Source RADRPT 2022-10-18 22:06:30 Test Item Value Reference Range Interpretation Comme nts RADRPT (test code = RADRPT) PROCEDURE INFORMATION: Exam: XR Chest Exam date and time: 10/18/2022 10:14 AM Age: 77 years old Clinical indication: Unspecified iridocyclitis; Additional info: /h20.9 unspecified iridocyclitis TECHNIQUE: Imaging protocol: Radiologic exam of the chest. Views: 2 views. COMPARISON: No relevant prior studies available. FINDINGS: Tubes, catheters and devices: Not applicable. Lungs: Clear lungs without focal opacities or atelectasis. Pleural spaces: No pleural effusion. No pneumothorax. Heart/Mediastinum: No cardiomegaly. Bones/joints: Unremarkable. IMPRESSION: Clear lungs without acute cardiopulmonary process. Andrew Suazo MD On 10/18/2022 16:06:07; [id number] [facility]
[2023-01-13] MEDS ORDERED: SILVER SULFADIAZINE 1% 25 GM TOP ONE (13:44)
[2023-01-13] MEDS ORDERED: SILVER NITRATE 1 APPL TOP ONE (13:48)
[2023-01-13] MEDS ORDERED: OXYMETAZOLINE HCL 0.05% 15ML NAS ONE (14:03)
--- NOTE | 2023-01-13 14:14 | EDPHYS ---
Physician Documentation [facility] Name: Kenn Shah III Age: 77 yrs Sex: Male : 1945 Arrival Date: 01/13/2023 Time: 12:22 Bed 7 Private MD: ED Physician Alfredo Roman HPI: 01/13 12:30 This 77 yrs old Male presents to ER via Unassigned with complaints of Nose bs3 Bleed. 12:30 77-year-old male presents with epistaxis he notes 3 episodes over the last month he bs3 notes that he was picking his nose when it started just prior to arrival and he started to bleed he denies anything else bothering him he is not on blood thinner. Historical: - Allergies: 12:54 No Known Allergies; mb9 - Home Meds: 12:54 losartan oral [Active]; mb9 - PMHx: 12:54 Hypertensive disorder; Glaucoma; mb9 - PSHx: 12:54 None; mb9 - Immunization history:: Adult Immunizations up to date. - Social history:: Smoking status: Patient denies any tobacco usage or history of. ROS: 12:30 Constitutional: Negative for fever, chills Eyes: Negative for injury, pain, redness, bs3 and discharge, ENT: Positive epistaxis Neck: Negative for injury, pain, and swelling, Cardiovascular: Negative for chest pain, palpitations, and edema, Respiratory: Negative for shortness of breath, cough, wheezing Abdomen/GI: Negative for abdominal pain, nausea, vomiting, diarrhea Exam: 12:30 Constitutional: This is a well developed, well nourished patient who is awake, alert, bs3 and in no acute distress. Head/Face: Normocephalic, atraumatic. Eyes: Pupils equal round and reactive to light, extra-ocular motions intact. Lids and lashes normal. ENT: From the right nare a large clot was pulled I then had the patient blow out and there is no active bleeding we will place pressure and reassess Neck: Trachea midline, no thyromegaly, no neck stiffness Chest/axilla: Normal chest wall appearance and motion. Nontender with no deformity. No lesions are appreciated. Cardiovascular: Regular rate and rhythm with a normal S1 and S2. symmetric pulses in upper extremities Vital Signs: 12:48 BP 166 / 103; Pulse 57; Resp 18; Temp 98.1; Pulse Ox 100% on R/A; Weight 77.11 kg; mb9 Height 5 ft. 7 in. ; Pain 0/10; 13:53 BP 190 / 91; Pulse 55; Resp 18; Pulse Ox 99% on R/A; ld1 12:48 Body Mass Index 26.63 (77.11 kg, 170.18 cm) mb9 12:48 Pain Scale: Adult mb9 Procedures: 13:40 Epistaxis treatment: A small amount of bleeding noted from Treated using cauterization, bs3 silver nitrate, Bleeding stopped. MDM: 12:29 Patient medically screened. bs3 12:30 Differential diagnosis: epistaxis r/t trauma. Data reviewed: vital signs, nurses notes. bs3 ED course: Advised outpatient follow-up with ENT. 13:40 ED course: After bleeding resolved I suspect that area will likely the cause of the bs3 bleeding on the right septum a silver nitrate to prevent further bleeding return precautions given. 14:11 ED course: An EKG was performed as patient was bradycardic in his normal sinus rhythm bs3 at 59 with PACs he is asymptomatic his QTc is 399 as interpreted by myself. 01/13 13:42 Order name: EKG - Nurse/Tech; Complete Time: 13:51 ld1 Administered Medications: 13:43 Not Given (Physician Discretion): Silver SulfADIAZINE Topical Cream 1 % 1 application mb9 Topical once 14:00 Drug: Silver Nitrate Applicators Topical 1 application Route: Topical; Site: affected mb9 area; 14:05 Drug: Oxymetazoline Intranasal Drops (0.05 %) 1 sprays Route: Intranasal; Site: right mb9 nare; Disposition Summary: 01/13/23 14:13 Discharge Ordered Location: Home bs3 Problem: new bs3 Symptoms: have improved bs3 Condition: Stable bs3 Diagnosis - Epistaxis bs3 Followup: bs3 - With: Sammi Dominguez MD - When: 5 - 6 days - Reason: Re-evaluation by your physician Discharge Instructions: - Discharge Summary Sheet bs3 - Nosebleed, Adult, [id number] bs3 Forms: - Medication Reconciliation Form bs3 - Thank You Letter bs3 - Antibiotic Education bs3 - Prescription Opioid Use bs3 Signatures: Elena Aguilar RN RN ld1 Alfredo Roman MD MD bs3 Sylvia Nelson RN RN mb9 Corrections: (The following items were deleted from the chart) 12:33 12:30 Constitutional: Negative for fever, chills Eyes: Negative for injury, pain, bs3 redness, and discharge, ENT: large clot from right nare, no active bleeding. Neck: Negative for injury, pain, and swelling, Cardiovascular: Negative for chest pain, palpitations, and edema, Respiratory: Negative for shortness of breath, cough, wheezing Abdomen/GI: Negative for abdominal pain, nausea, vomiting, diarrhea bs3
--- NOTE | 2023-01-13 14:14 | ER ---
Nurse's Notes [facility] Name: Kenn Shah III Age: 77 yrs Sex: Male : 1945 Arrival Date: 01/13/2023 Time: 12:22 Bed 7 Private MD: Diagnosis: Epistaxis Presentation: 01/13 12:48 Chief complaint: EMS states: "pt having epistaxis on right nare. He was picking his mb9 nose. He was hypertensive on scene at 180/80". Coronavirus screen: Vaccine status: Patient reports receiving the 2nd dose of the covid vaccine. Ebola Screen: No symptoms or risks identified at this time. Initial Sepsis Screen: Does the patient meet any 2 criteria? No. Patient's initial sepsis screen is negative. Does the patient have a suspected source of infection? No. Patient's initial sepsis screen is negative. Risk Assessment: Do you want to hurt yourself or someone else? Patient reports no desire to harm self or others. Onset of symptoms was January 13, 2023. 12:48 Method Of Arrival: EMS: [facility] mb9 12:48 Acuity: DOUG 4 mb9 Triage Assessment: 12:55 General: Appears in no apparent distress. Behavior is calm, cooperative. Pain: Denies mb9 pain. EENT: nose clamp in place. Reports bleeding from right nare. Neuro: Crespo Agitation-Sedation Scale (RASS): 0 - Alert and Calm Level of Consciousness is awake, alert, obeys commands, Oriented to person, place, time, situation, Appropriate for age. Respiratory: Airway is patent Respiratory effort is even, unlabored, Respiratory pattern is regular, agonal. Derm: Skin is pink, warm \\T\\ dry. Musculoskeletal: Range of motion: intact in all extremities. Historical: - Allergies: 12:54 No Known Allergies; mb9 - Home Meds: 12:54 losartan oral [Active]; mb9 - PMHx: 12:54 Hypertensive disorder; Glaucoma; mb9 - PSHx: 12:54 None; mb9 - Immunization history:: Adult Immunizations up to date. - Social history:: Smoking status: Patient denies any tobacco usage or history of. Screenin:59 [facility] ED Fall Risk Assessment (Adult) History of falling in the last 3 months, mb9 including since admission No falls in past 3 months (0 pts) Confusion or Disorientation No (0 pts) Intoxicated or Sedated No (0 pts) Impaired Gait No (0 pts) Mobility Assist Device Used No (0 pt) Altered Elimination No (0 pt) Score/Fall Risk Level 0 - 2 = Low Risk Oriented to surroundings, Maintained a safe environment, Educated pt \\T\\ family on fall prevention, incl call for assistance when getting out of bed. Abuse screen: Denies threats or abuse. Nutritional screening: No deficits noted. Tuberculosis screening: No symptoms or risk factors identified. Assessment: 12:55 Reassessment: see triage assessment. mb9 14:19 Reassessment: No changes from previously documented assessment. Patient and/or family mb9 updated on plan of care and expected duration. Pain level reassessed. Patient is alert, oriented x 3, equal unlabored respirations, skin warm/dry/pink. Vital Signs: 12:48 BP 166 / 103; Pulse 57; Resp 18; Temp 98.1; Pulse Ox 100% on R/A; Weight 77.11 kg; mb9 Height 5 ft. 7 in. ; Pain 0/10; 13:53 BP 190 / 91; Pulse 55; Resp 18; Pulse Ox 99% on R/A; ld1 12:48 Body Mass Index 26.63 (77.11 kg, 170.18 cm) mb9 12:48 Pain Scale: Adult mb9 ED Course: 12:27 Patient arrived in ED. ss 12:29 Alfredo oRman MD is Attending Physician. bs3 12:48 Sylvia Nelson, BENNY is Primary Nurse. mb9 12:54 Triage completed. mb9 12:54 Arm band placed on. mb9 12:59 Placed in gown. Bed in low position. Call light in reach. Side rails up X 1. Client mb9 placed on continuous cardiac and pulse oximetry monitoring. NIBP monitoring applied. 12:59 No provider procedures requiring assistance completed. mb9 14:12 Sammi Dominguez MD is Referral Physician. bs3 14:19 IV discontinued, intact, bleeding controlled, No redness/swelling at site. Pressure mb9 dressing applied. Administered Medications: 13:43 Not Given (Physician Discretion): Silver SulfADIAZINE Topical Cream 1 % 1 application mb9 Topical once 14:00 Drug: Silver Nitrate Applicators Topical 1 application Route: Topical; Site: affected mb9 area; 14:05 Drug: Oxymetazoline Intranasal Drops (0.05 %) 1 sprays Route: Intranasal; Site: right mb9 nare; Medication: 12:59 VIS not applicable for this client. mb9 Outcome: 14:13 Discharge ordered by . bs3 14:19 Discharged to home ambulatory. mb9 14:19 Condition: stable 14:19 Discharge instructions given to patient, Instructed on discharge instructions, follow up and referral plans. Demonstrated understanding of instructions, follow-up care. 14:19 Patient left the ED. mb9 Signatures: Nancy Cain, RN RN ss Elena Aguilar RN RN ld1 Alfredo Roman MD MD bs3 Sylvia Nelson RN RN mb9
[2023-01-13 14:25] VITALS: TEMP 98.1
[2023-01-13 14:27] VITALS: BP 190/91; O2SAT 99
--- NOTE | 2023-01-16 10:20 | EKG ---
Test Date: 2023-01-13 Test Time: 13:47:51 Solar Panel Technician: Cristi CLARKE MEASUREMENT RESULTS: Intervals: Rate: 59 MN: 116 QRSD: 70 QT: 404 QTc: 399 [place]: P: 65 MN: 116 QRS: 53 T: 60 INTERPRETIVE STATEMENTS: Sinus bradycardia with premature atrial complexes Otherwise normal ECG Compared to ECG 09/14/2016 13:08:11 Atrial premature complex(es) now present Electronically Signed On 01-16-23 10:14:22 CDT by Sharif Lovett
== END 2023-01-13 14:19 | disposition home or self-care (01) ==
LOC: ER 12:22
DX: R04.0 Epistaxis (principal); I10 Essential (primary) hypertension
CPT/HCPCS: 30901; 93005; 99283

== ENCOUNTER → 2024-01-31 | Day surgery (SDC) | payer OTHER ==
[2024-01-26 15:19] LABS: Absolute Basophils 0.1 K/uL (0-0.5); Absolute Eosinophils 0.1 K/uL (0-0.5); Absolute Lymphocytes (CBC) 1.8 K/uL (0.7-4.9); Absolute Monocytes 0.6 K/uL (0.1-1.3); Basophils % 0.8 % (0-1.3); Eosinophils % 0.9 % (0-4.4); Hematocrit 45.4 % (39.6-49.0); Hemoglobin 15.1 g/dL (13.6-17.9); Lymphocytes % 23.4 % (15.3-44.8); MCH 30.6 pg (27.0-35.0); MCHC 33.3 g/dL (32.0-36.0); MCV 91.8 fL (80-100); MPV 7.6 fL (7.6-11.3); Monocytes % 8.3 % (3.3-12.3); Neutrophils % 66.6 % (41.7-73.7); Nucleated Red Blood Cells % 0.1 % (0-0); Platelets 216 thou/uL (152-406); RBC Red Blood Cell Count 4.94 M/uL (4.33-5.43); Red Cell Distribution Width 14.5 % (12.1-15.2)
[2024-01-26 15:24] LABS: PT Prothrombin Time 13.7 SECONDS (9.5-12.5); PTT, Activated Partial Thromb 39.4 SECONDS (24.3-36.9); Protime INR 1.25
[~2024-01-31] MED LIST: ATROPINE SULF 1 MG/10 ML SYR IV ONE; LIDOCAINE 1% MPF 5 ML VIAL ONE; NA CHLORIDE 0.9% 500 ML ONE; propofoL 200 MG/20 ML VIAL IV ONE
[2024-01-31 09:07] VITALS: BP 131/72; O2SAT 94
--- NOTE | 2024-01-31 14:11 | TEE ---
TRANSESOPHAGEAL ECHOCARDIOGRAM REPORT CARDIOLOGY DEPARTMENT DATE OF STUDY: 01/31/2024 HEIGHT: 5'10" WEIGHT: 195 lbs DIAGNOSIS: ATRIAL FIBRILLATION/ CARDIOVERSION RESEARCH ADMINISTRATOR COMMENTS: ADENIKE CARDIAC HISTORY: CATHERIZATION: SURGERY: PROSTHETIC VALVE: PACEMAKER: 2 DIMENSIONAL ASSESSMENT: RIGHT ATRIUM: NORMAL LEFT ATRIUM: MODERATE DILATED RIGHT VENTRICLE: NORMAL LEFT VENTRICLE: NORMAL TRICUSPID VALVE: TRACE TRICUSPID REGURGITATION MITRAL VALVE: MILD MITRAL REGURGITATION PULMONIC VALVE: NORMAL AORTIC VALVE: NORMAL PERICARDIAL EFFUSION: NONE AORTIC ROOT: NORMAL EJECTION FRACTION: LEFT VENTRICULAR WALL MOTION: NORMAL DOPPLER/COLOR FLOW: NOT ASSESSED COMMENTS: 1. MODERATE DILATED LEFT ATRIUM, NORMAL LEFT ATRIAL APPENDAGE, NO THROMBUS 2. MILD MITRAL REGURGITATION TECHNOLOGIST: JOSIE MCCLAIN
--- NOTE | 2024-02-01 02:35 | OP ---
Date of Procedure: 01/31/2024 Surgeon: Deep Pfeiffer Procedure Performed: ADENIKE-guided cardioversion. Indication For Procedure: Atrial fibrillation. Complications: None. Estimated Blood Loss: None. Sedation: Done by Anesthesia Team. Description Of Procedure: After risks, benefits, and alternatives were explained to the patient, the patient agreed to proceed with the procedure and signed informed consent. The patient was brought b ack to the OR, prepped and draped. A time-out was performed. Sedation was done by Anesthesia Team. ADENIKE probe inserted. Images were obtained. ADENIKE probe was pulled out and then a synchronized cardiov ersion with 200 joules was applied. The patient went back into sinus rhythm, but went back into atri al fibrillation shortly, so another synchronized cardioversion was done with the repeated 200 joules. The patient also went into sinus rhythm, but went back into atrial fibrillation shortly, so we deci ded to abort procedures and more cardioversions to be done. The patient was stable, rate controlled atrial fibrillation, and he was moved back to recovery in stable condition. Assessment/plan: Unsuccessful ADENIKE-guided cardioversion x2. The plan will be to continue medical man agement. LUCIANA/LILA Voice ID: [id number] Report ID: [id number]
--- NOTE | 2024-02-01 16:18 | EKG ---
Test Date: 2024-01-31 Test Time: 09:00:39 Newspaper Illustrator: MEASUREMENT RESULTS: Intervals: Rate: 61 [place]: QRSD: 82 QT: 428 QTc: 430 [place]: P: [place]: QRS: 72 T: 62 INTERPRETIVE STATEMENTS: Atrial fibrillation Abnormal ECG Compared to ECG 01/13/2023 13:47:51 Sinus bradycardia no longer present Atrial premature complex(es) no longer present Electronically Signed On 02-01-24 16:16:29 CDT by Daryl Jacobsen
== END ==
LOC: CCL 07:13
PROVIDERS: ATTEND Internal Medicine Interventional Cardiology
DX: I48.91 Unspecified atrial fibrillation (principal); R00.1 Bradycardia, unspecified; I12.9 Hypertensive chronic kidney disease with stage 1 through stage 4 chronic kidney disease, or unspecified chronic kidney disease; N18.30 Chronic kidney disease, stage 3 unspecified; N40.0 Benign prostatic hyperplasia without lower urinary tract symptoms; G62.9 Polyneuropathy, unspecified; Z79.01 Long term (current) use of anticoagulants; Z79.899 Other long term (current) drug therapy
CPT/HCPCS: 93005; 93312; 85025; 80048; 36415; 85610; 85730; 92960; J2704; J2001; J7040; J0461

== ENCOUNTER 2025-03-26 20:48 | Inpatient (IN) | payer OTHER ==
--- NOTE | 2025-03-26 22:04 | RAD REPORT ---
EXAMINATION: Head Brain Wo Cont CLINICAL INDICATION: Male, 79 years old.altered mental status TECHNIQUE: Axial CT images from the skull base to the vertex without intravenous contrast. Coronal an d sagittal reformatted images were created from the data set. One or more of the following dose reduction techniques were used: Automated exposure control, adjustment of the mA and/or kV according to patient size, and/or iterative reconstruction. Unless otherwise specified, incidental findings do not require dedicated imaging follow-up. [id number]. COMPARISON: No prior exams FINDINGS: INTRACRANIAL: No acute intracranial hemorrhage. No acute large vascular territory infarct. No hydroce phalus. No mass effect or midline shift. Moderate chronic small vessel ischemic changes.Moderate cerebral atrophy. VASCULATURE: No visualized abnormalities in the arteries or dural venous sinuses. SCALP/SKULL: No calvarial fracture identified. No acute soft tissue abnormality. SINUSES: Circumferential thickening in the maxillary sinuses bilaterally. No significant mastoid flui d. IMPRESSION: No acute intracranial abnormality.
--- NOTE | 2025-03-26 22:29 | RAD REPORT ---
EXAM: Chest Single View HISTORY: 79 years Male Cough;Fever COMPARISON: 03/25/2015 FINDINGS: LUNGS/PLEURA: The lungs are clear. No pleural effusions or pneumothorax. No pulmonary edema. CARDIAC/MEDIASTINUM: The cardiac silhouette is within normal limits. UPPER ABDOMEN: No significant abnormality. BONES: No acute abnormality. LINES/TUBES/OTHER: N/A IMPRESSION: No evidence of acute cardiopulmonary disease.
[2025-03-26] MEDS ORDERED: ACETAMINOPHEN 500 MG TAB ONE (22:37)
[2025-03-26] MEDS ORDERED: NA CHLORIDE 0.9% 500 ML ONE (22:46)
[2025-03-26 23:00] LABS: Absolute Lymphocytes (CBC) 0.5 K/uL (0.7-4.9); Hematocrit 42.7 % (39.6-49.0); Hemoglobin 14.7 g/dL (13.6-17.9); MCH 29.8 pg (27.0-35.0); MCHC 34.4 g/dL (32.0-36.0); MCV 86.6 fL (80-100); MPV 7.5 fL (7.6-11.3); Nucleated RBC Absolute Count 0.0 (0-0); Nucleated Red Blood Cells % 0.1 % (0-0); RBC Red Blood Cell Count 4.93 M/uL (4.33-5.43); White Blood Count 5.10 thou/uL (4.3-10.9)
[2025-03-26 23:04] LABS: PT Prothrombin Time 33.4 SECONDS (10-13.0); PTT, Activated Partial Thromb 42.5 SECONDS (27.2-37.4); Protime INR 3.05
[2025-03-26 23:11] LABS: ALT/SGPT 17.0 U/L (16-61); AST/SGOT 13.0 U/L (15-37); Albumin 3.5 g/dL (3.4-5.0); Albumin/Globulin Ratio 1.0 (1.1-1.8); Alkaline Phosphatase 83.0 U/L (45-117); Anion Gap 8.8 mEq/L (5.0-15.0); BUN Blood Urea Nitrogen 12.0 mg/dL (7-18); Globulin 3.4 g/dL (2.3-3.5); Glucose Level 92.0 mg/dL (74-106); NT PRO-BNP 2078.0 pg/mL (<450); Potassium 3.8 mEq/L (3.5-5.1); Troponin High Sensitivity 7.5 pg/mL (<58.9)
[2025-03-27 00:37] LABS: Sqamous Epithelial <5 /HPF (None Seen); Urine Culture Reflex Order NOT NEEDED; Urine Microscopic Reflex YN ORDER UMIC
--- NOTE | 2025-03-27 00:57 | EDPHYS ---
Physician Documentation [facility] Name: Kenn Shah III Age: 79 yrs Sex: Male : 1945 Arrival Date: 03/26/2025 Time: 20:48 Bed 16 Private MD: ED Physician Gil Chino HPI: 03/26 21:35 This 79 yrs old Male presents to ER via Ambulatory with complaints of Altered Mental cp Status. 21:35 The patient presents with confusion. cp 21:35 Onset: The symptoms/episode began/occurred today. cp 21:35 Possible causes: uti. Associated signs and symptoms: Pertinent positives: confusion, cp weakness, cough, fever, Pertinent negatives: abdominal pain, chest pain, diaphoresis, headache. Patient's baseline: Neuro: alert and fully oriented, Motor: no deficits, Ambulation: walks without assistance, Speech: normal. Historical: - Allergies: 21:21 No Known Allergies; lg3 - Home Meds: 21:21 losartan 25 mg oral tablet daily [Active]; metoprolol tartrate 50 mg oral tablet daily lg3 [Active]; Xarelto 20 mg oral tablet daily [Active]; finesteride 5 mg twice a day [Active]; tamsulosin 0.4 mg oral capsule daily [Active]; - PMHx: 21:21 Glaucoma; Hypertensive disorder; AIB (Hypertensive disorder); lg3 - PSHx: 21:21 Cholecystectomy; lg3 - Immunization history:: Adult Immunizations up to date. - Infectious Disease History:: Denies. - Social history:: Smoking status: Patient denies any tobacco usage or history of. Patient/guardian denies using alcohol, street drugs. ROS: 21:40 Constitutional: Positive for fatigue, Negative for poor PO intake, cp 21:40 Eyes: Negative for injury, pain, redness, and discharge, cp 21:40 ENT: Negative for ear pain, sore throat, difficulty swallowing, difficulty handling secretions, 21:40 Cardiovascular: Negative for chest pain, edema, palpitations, 21:40 Respiratory: Positive for cough, Negative for shortness of breath, wheezing, 21:40 Abdomen/GI: Negative for abdominal pain, vomiting, diarrhea, constipation, 21:40 Neuro: Positive for weakness, Negative for altered mental status, 21:40 All other systems are negative, Exam: 21:45 Constitutional: The patient appears in no acute distress, alert, awake, cp non-diaphoretic, non-toxic, well developed, well nourished, 21:45 Head/Face: Normocephalic, atraumatic. cp 21:45 Eyes: Periorbital structures: appear normal, Pupils: equal, round, and reactive to light and accomodation, Conjunctiva: normal, no exudate, no injection, Sclera: no appreciated abnormality, Lids and lashes: appear normal, bilaterally, 21:45 ENT: External ear(s): are unremarkable, Nose: is normal, Mouth: Lips: moist, Oral mucosa: moist, Posterior pharynx: Airway: no evidence of obstruction, patent, 21:45 Neck: ROM/movement: Meningeal signs: are not present, 21:45 Chest/axilla: Inspection: normal, 21:45 Cardiovascular: Rate: normal, Rhythm: regular, JVD: is not appreciated, 21:45 Respiratory: the patient does not display signs of respiratory distress, Respirations: normal, no use of accessory muscles, no retractions, labored breathing, is not present, Breath sounds: are clear throughout, no decreased breath sounds, no stridor, no wheezing, 21:45 Abdomen/GI: Inspection: abdomen appears normal, Palpation: abdomen is soft and non-tender, in all quadrants, 21:45 Back: pain, is absent, ROM is normal, 21:45 Neuro: Orientation: to person, place \T\ time. Mentation: able to follow commands, sleepy, Cerebellar function: Romberg testing is negative, Motor: moves all fours, no focal deficits, Sensation: no obvious gross deficits, 23:38 ECG was reviewed by the Attending Physician. cp Vital Signs: 21:18 BP 135 / 87; Pulse 70; Resp 17 S; Temp 100.4(O); Pulse Ox 98% on R/A; Weight 74.39 kg lg3 (R); Height 5 ft. 10 in. (R); Pain 0/10; 23:04 BP 132 / 80; Pulse 90; Resp 18; Pulse Ox 90% on R/A; Weight 74.39 kg; Height 5 ft. 10 tb4 in. ; Pain 0/10; 14 00:16 BP 123 / 75; Pulse 84; Resp 18; Pulse Ox 99% on R/A; Pain 0/10; tb4 01:14 BP 120 / 76; Pulse 83; Resp 20; Pulse Ox 98% on R/A; Pain 0/10; tb4 02:09 BP 135 / 86; Pulse 79; Resp 17; Pulse Ox 100% on R/A; Pain 0/10; tb4 03:03 BP 111 / 73; Pulse 69; Resp 19; Pulse Ox 96% on R/A; Pain 0/10; tb4 03/26 23:04 Body Mass Index 23.53 (74.39 kg, 177.8 cm) 4 03/26 21:18 Pain Scale: Adult lg3 23:04 Pain Scale: Adult tb4 03/27 00:16 Pain Scale: Adult tb4 01:14 Pain Scale: Adult tb4 02:09 Pain Scale: Adult tb4 03:03 Pain Scale: Adult tb4 NIH Stroke Scale Scores: 03/26 21:21 NIHSS Score: 0 lg3 MDM: 21:31 Medical Screening Exam initiated 03/27 01:00 Data reviewed: vital signs, nurses notes, lab test result(s), EKG, radiologic studies, cp CT scan, plain films. 01:00 Management of patient was discussed with the following: Hospitalist: DR Thompson who will cp admit after discussion. Care significantly affected by the following chronic conditions: Hypertension. Counseling: I had a detailed discussion with the patient and/or guardian regarding the historical points, exam findings, and any diagnostic results supporting the discharge/admit diagnosis, lab results, radiology results, the need for further work-up and treatment in the hospital. 03/26 21:27 Order name: UA Rfx Madhav Cult if indicated; Complete Time: 00:38 03/27 00:39 Interpretation: Normal except: UKET TRACE; UPROT TRACE. 03/26 21:31 Order name: BNP; Complete Time: 23:23 03/26 23:23 Interpretation: Reviewed. 03/26 21:31 Order name: Blood Culture Adult (2); Complete Time: 01:48 03/26 21:31 Order name: CBC with Diff; Complete Time: 23:23 03/27 00:39 Interpretation: Normal except: MPV 7.5; SEBASTIEN% 75.9; LYM% 10.6; MN% 13.0; LYMA 0.5. 03/26 21:31 Order name: CMP; Complete Time: 23:23 cp 03/27 00:38 Interpretation: Normal except: NA 134; CRE 1.40; GFR 51; AST 13; A/G 1.0. cp 03/26 21:31 Order name: Lactate w/ 2H reflex if indic.; Complete Time: 23:23 cp 03/26 21:31 Order name: Protime (+inr); Complete Time: 23:23 cp 03/26 21:31 Order name: Ptt, Activated; Complete Time: 23:23 cp 03/26 21:31 Order name: Troponin HS; Complete Time: 23:23 cp 03/27 00:20 Order name: Glucose, Ancillary Testing; Complete Time: 00:38 EDMS 03/27 01:58 Order name: CBC with Automated Diff EDMS 03/27 01:58 Order name: CBC with Automated Diff EDMS 03/27 01:58 Order name: Comprehensive Metabolic Panel EDMS 03/27 01:58 Order name: Comprehensive Metabolic Panel EDMS 03/27 01:59 Order name: COVID-19 Ag + Flu A+B Ag; Complete Time: 01:48 EDMS 03/26 21:27 Order name: CT Head Brain wo Cont; Complete Time: 22:18 cp 03/26 21:31 Order name: Chest Single View XRAY; Complete Time: 23:23 03/26 23:23 Interpretation: Report review. 03/27 08:01 Order name: MRI; Complete Time: 01:48 EDMS 03/26 21:31 Order name: Accucheck; Complete Time: 00:12 cp 03/26 21:31 Order name: Cardiac monitoring; Complete Time: 23:39 03/26 21:31 Order name: EKG - Nurse/Tech; Complete Time: 23:39 cp 03/26 21:31 Order name: IV Saline Lock - Large Bore; Complete Time: 22:40 03/26 21:31 Order name: Labs collected and sent; Complete Time: 22:40 03/26 21:31 Order name: O2 Per Protocol; Complete Time: 23:39 cp 03/26 21:31 Order name: O2 Sat Monitoring; Complete Time: 23:39 cp 03/26 21:31 Order name: Vital Signs; Complete Time: 00:12 cp 03/26 23:27 Order name: Cath: urine; Complete Time: 00:12 cp EC/13 23:38 Rate is 73 beats/min. Rhythm is irregular. QRS interval is normal. QT interval is cp normal. T waves are Inverted in leads aVR, V2, V3. Interpreted by me. Reviewed by me. Administered Medications: 22:55 Drug: Acetaminophen PO 1000 mg PO once Route: PO; tb4 23:00 Follow up: Response: No adverse reaction tb4 22:55 Drug: NS 0.9% IV 500 ml 500 ml IV at 1 bolus once; to be given as a bolus over 30 tb4 minutes Volume: 500 ml; Route: IV; Rate: 1 bolus; Site: left antecubital; 23:00 Follow up: Response: No adverse reaction; IV Status: Completed infusion tb4 Disposition: 03/27 19:02 Co-signature as Attending Physician, Gil Chino MD I reviewed the patient's care rn provided by the Advanced Practice Provider and agree with the diagnosis and treatment plan. Disposition Summary: 03/27/25 00:56 Hospitalization Ordered Notes: Hospitalization Status: Observation cp Provider: Radames Thompson cp Condition: Stable cp Problem: new cp Symptoms: have improved cp Bed/Room Type: Standard cp Location: Telemetry/MedSurg (observation)(03/27/25 06:28) vk Room Assignment: 406(03/27/25 06:28) vk Diagnosis - Altered mental status, unspecified cp - Unspecified atrial fibrillation cp - Fever, unspecified cp Forms: - Medication Reconciliation Form cp - SBAR form cp - Leadership Thank You Letter cp NIH Stroke Scale - NIH Stroke Score Date: 03/26/2025 Time: 21:21 Total Score = 0 10. Dysarthria (speech clarity - read or repeat words) - 0(Normal) 11. Extinction and Inattention (visual/tactile/auditory/spatial/personal) - 0(No abnormality) 1a. Level of Consciousness (LOC) - 0(Alert) 1b. Level of Consciousness (LOC) (Month \T\ Age) - 0(Both) 1c. LOC Commands (Open \T\ Closes Eyes/Steel Construction Worker) - 0(Both) 2. Best Gaze (Lateral Gaze Paresis) - 0(Normal) 3. Visual Field Loss - 0(No visual loss) 4. Facial Palsy - 0(Normal) 5a. Left Arm: Motor (10-second hold) - 0(No drift) 5b. Right Arm: Motor (10-second hold) - 0(No drift) 6a. Left Leg: Motor (5-second hold - always test supine) - 0(No drift) 6b. Right Leg: Motor (5-second hold - always test supine) - 0(No drift) 7. Limb Ataxia (finger/nose \T\ heel/agudelo - test with eyes open) - 0(Absent) 8. Sensory Loss (pinprick arms/legs/face) - 0(Normal) 9. Best Language: Aphasia (description/naming/reading) - 0(No aphasia) Initials: lg3 Signatures: Dispatcher [employer] EDMS Gil Chino MD MD rn Len Hyde PA PA cp Able, Lacie, RN RN lg3 Emmie Gallgaher Terri, RN RN tb4 Corrections: (The following items were deleted from the chart) 03/26 21:27 21:27 UA Rfx Madhav Cult if indicated+U.LAB.BRZ ordered. EDMS EDMS 21:27 21:27 Head Brain Wo Cont+CT.RAD.BRZ ordered. EDMS EDMS 21:32 21:32 PROBNP+C.LAB.BRZ ordered. EDMS EDMS 21:32 21:32 BLOOD CULTURE*+BA.LAB.BRZ ordered. EDMS EDMS 21:32 21:32 CBC+H.LAB.BRZ ordered. EDMS EDMS 21:32 21:32 COMPREHENSIVE METABOLIC PANEL+C.LAB.BRZ ordered. EDMS EDMS 21:32 21:32 LACTATE+C.LAB.BRZ ordered. EDMS EDMS 21:32 21:32 PROTIME (+INR)+COAG.LAB.BRZ ordered. EDMS EDMS 21:32 21:32 PTT, ACTIVATED+COAG.LAB.BRZ ordered. EDMS EDMS 21:32 21:32 Troponin High Sensitivity+C.LAB.BRZ ordered. EDMS EDMS 21:32 21:32 Chest Single View+RAD.RAD.BRZ ordered. EDKS EDKS 03/27 01:00 00:56 Telemetry/MedSurg (observation) cp vk 01:00 00:56 cp vk 06:27 01:00 ERHOLD- vk vk 06:28 01:00 [facility] ER HOLD vk vk 06:28 06:27 ERHOLD- vk vk
--- NOTE | 2025-03-27 00:57 | ER ---
Nurse's Notes [facility] Name: Kenn Shah III Age: 79 yrs Sex: Male : 1945 Arrival Date: 03/26/2025 Time: 20:48 Bed 16 Private MD: Diagnosis: Altered mental status, unspecified;Unspecified atrial fibrillation;Fever, unspecified Presentation: 03/26 21:18 Chief complaint: intermittent confusion and unsteady gait beginning today. pt reports lg3 increased tiredness. Coronavirus screen: Client denies travel out of the [place] in the last 14 days. At this time, the client does not indicate any symptoms associated with coronavirus-19. Ebola Screen: No symptoms or risks identified at this time. Initial Sepsis Screen: Does the patient meet any 2 criteria? No. Patient's initial sepsis screen is negative. Does the patient have a suspected source of infection? No. Patient's initial sepsis screen is negative. Risk Assessment: Do you want to hurt yourself or someone else? Patient reports no desire to harm self or others. Onset of symptoms was March 26, 2025. 21:18 Method Of Arrival: Ambulatory lg3 21:18 Acuity: DOUG 3 lg3 Triage Assessment: 21:21 General: Appears in no apparent distress. comfortable, Behavior is calm, cooperative. lg3 Pain: Denies pain. EENT: No signs and/or symptoms were reported regarding the EENT system. Neuro: Crespo Agitation-Sedation Scale (RASS): 0 - Alert and Calm Level of Consciousness is awake, alert, obeys commands, confused, Oriented to person, place, situation, Finished Garment Inspector are equal bilaterally Moves all extremities. Full function Gait is shuffling, Speech is normal, Facial symmetry appears normal, Intact. Cardiovascular: No deficits noted. Denies chest pain, shortness of breath, Capillary refill < 3 seconds Clubbing of nail beds is absent JVD is absent Patient's skin is warm and dry. Respiratory: No deficits noted. Reports cough that is Airway is patent Respiratory effort is even, unlabored, Respiratory pattern is regular, symmetrical, Breath sounds are clear bilaterally. GI: No deficits noted. No signs and/or symptoms were reported involving the gastrointestinal system. : No signs and/or symptoms were reported regarding the genitourinary system. Derm: No deficits noted. No signs and/or symptoms reported regarding the dermatologic system. Skin is intact, is healthy with good turgor, Skin is dry, Skin is normal, Skin temperature is warm. Musculoskeletal: Circulation, motion, and sensation intact. Range of motion: intact in all extremities. Historical: - Allergies: 21:21 No Known Allergies; lg3 - Home Meds: 21:21 losartan 25 mg oral tablet daily [Active]; metoprolol tartrate 50 mg oral tablet daily lg3 [Active]; Xarelto 20 mg oral tablet daily [Active]; finesteride 5 mg twice a day [Active]; tamsulosin 0.4 mg oral capsule daily [Active]; - PMHx: 21:21 Glaucoma; Hypertensive disorder; AIB (Hypertensive disorder); lg3 - PSHx: 21:21 Cholecystectomy; lg3 - Immunization history:: Adult Immunizations up to date. - Infectious Disease History:: Denies. - Social history:: Smoking status: Patient denies any tobacco usage or history of. Patient/guardian denies using alcohol, street drugs. Screenin:40 [facility] ED Fall Risk Assessment (Adult) History of falling in the last 3 months, me1 including since admission No falls in past 3 months (0 pts) Confusion or Disorientation Yes (5 pts) Intoxicated or Sedated No (0 pts) Impaired Gait Yes (1 pt) Mobility Assist Device Used Yes (1 pt) Altered Elimination No (0 pt) Score/Fall Risk Level 0 - 2 = Low Risk Maintained a safe environment, Provided non-skid footwear, Hourly rounding (assess needs \T\ fall precautionary measures) done. Abuse screen: Denies threats or abuse. Nutritional screening: No deficits noted. Tuberculosis screening: No symptoms or risk factors identified. 23:04 [facility] ED Fall Risk Assessment (Adult) History of falling in the last 3 months, tb4 including since admission No falls in past 3 months (0 pts) Confusion or Disorientation Yes (5 pts) Intoxicated or Sedated No (0 pts) Impaired Gait Yes (1 pt) Mobility Assist Device Used Yes (1 pt) Altered Elimination No (0 pt) Score/Fall Risk Level 3 or more points = High Risk Oriented to surroundings, Maintained a safe environment, Educated pt \T\ family on fall prevention, incl call for assistance when getting out of bed. Abuse screen: Denies threats or abuse. Nutritional screening: No deficits noted. Tuberculosis screening: No symptoms or risk factors identified. Assessment: 21:40 General: Appears in no apparent distress. well groomed, well developed, well nourished, me1 Behavior is calm, cooperative, appropriate for age, Reports intermittent confusion and unsteady gait beginning today. pt reports increased tiredness. Pain: Denies pain. Neuro: Level of Consciousness is awake, alert, obeys commands, Oriented to person, place, situation, Reports intermittent confusion starting today. Cardiovascular: Patient's skin is warm and dry. Respiratory: Airway is patent Respiratory effort is even, unlabored, Respiratory pattern is regular, symmetrical. GI: No signs and/or symptoms were reported involving the gastrointestinal system. : No signs and/or symptoms were reported regarding the genitourinary system. EENT: No signs and/or symptoms were reported regarding the EENT system. Derm: Skin is intact, is healthy with good turgor, Skin is pink, warm \T\ dry. Musculoskeletal: Reports unsteady gait starting today. 23:04 Reassessment: See triage note Patient denies pain at this time. General: Appears in no tb4 apparent distress. Behavior is calm, cooperative, Reports feeling ill pass two to three days. Pain: Denies pain. Neuro: Level of Consciousness is awake, alert, obeys commands, Oriented to person, place, Finished Garment Inspector are equal bilaterally weak bilaterally Moves all extremities. Full function Weakness Gait is unsteady, Speech is normal, Facial symmetry appears normal. Cardiovascular: Denies fatigue, lightheadedness, Capillary refill < 3 seconds is brisk in bilateral fingers. Respiratory: Airway is patent Trachea midline Respiratory effort is even, unlabored, Respiratory pattern is regular, symmetrical. GI: No deficits noted. No signs and/or symptoms were reported involving the gastrointestinal system. : No deficits noted. No signs and/or symptoms were reported regarding the genitourinary system. EENT: No deficits noted. No signs and/or symptoms were reported regarding the EENT system. Derm: Skin is intact, Skin is moist, Skin is pink, warm \T\ dry. Skin temperature is hot. Musculoskeletal: Reports generalized weakness for 2-3 days. 03/27 01:29 General: Anibal Ordonez- sister [phone]. lg3 Vital Signs: 08/13 21:18 BP 135 / 87; Pulse 70; Resp 17 S; Temp 100.4(O); Pulse Ox 98% on R/A; Weight 74.39 kg lg3 (R); Height 5 ft. 10 in. (R); Pain 0/10; 23:04 BP 132 / 80; Pulse 90; Resp 18; Pulse Ox 90% on R/A; Weight 74.39 kg; Height 5 ft. 10 tb4 in. ; Pain 0/10; 03/27 00:16 BP 123 / 75; Pulse 84; Resp 18; Pulse Ox 99% on R/A; Pain 0/10; tb4 01:14 BP 120 / 76; Pulse 83; Resp 20; Pulse Ox 98% on R/A; Pain 0/10; tb4 02:09 BP 135 / 86; Pulse 79; Resp 17; Pulse Ox 100% on R/A; Pain 0/10; tb4 03:03 BP 111 / 73; Pulse 69; Resp 19; Pulse Ox 96% on R/A; Pain 0/10; tb4 03/26 23:04 Body Mass Index 23.53 (74.39 kg, 177.8 cm) tb4 03/26 21:18 Pain Scale: Adult lg3 23:04 Pain Scale: Adult tb4 03/27 00:16 Pain Scale: Adult tb4 01:14 Pain Scale: Adult tb4 02:09 Pain Scale: Adult tb4 03:03 Pain Scale: Adult tb4 NIH Stroke Scale Scores: 03/26 21:21 NIHSS Score: 0 lg3 ED Course: 20:51 Patient arrived in ED. jj6 20:56 Len Hyde PA is PHCP. cp 20:56 Gil Chino MD is Attending Physician. cp 21:20 Triage completed. lg3 21:21 Arm band placed on right wrist. lg3 21:40 Patient has correct armband on for positive identification. Bed in low position. Call me1 light in reach. Side rails up X2. Provided Education on: POC. Verbalized understanding.. Client placed on continuous cardiac and pulse oximetry monitoring. NIBP monitoring applied. Pulse ox on. NIBP on. 21:40 No provider procedures requiring assistance completed. me1 21:47 CT Head Brain wo Cont In Process Unspecified. EDMS 22:23 Chest Single View XRAY In Process Unspecified. EDMS 22:23 Carol Goetz, BENNY is Primary Nurse. me1 22:40 Inserted saline lock: 20 gauge in left antecubital area, using aseptic technique. Blood ts3 collected. Flushed with 10 mL NS. 23:04 Patient has correct armband on for positive identification. Call light in reach. Client tb4 placed on continuous cardiac and pulse oximetry monitoring. NIBP monitoring applied. 23:39 Initial lab(s) drawn, by forestry farm laborer, sent to lab. ts3 23:39 EKG done, by chief ophthalmic technician. reviewed by Len CHAO. ts3 03/27 00:56 Radames Thompson MD is Hospitalizing Provider. cp Administered Medications: 03/26 22:55 Drug: Acetaminophen PO 1000 mg PO once Route: PO; tb4 23:00 Follow up: Response: No adverse reaction tb4 22:55 Drug: NS 0.9% IV 500 ml 500 ml IV at 1 bolus once; to be given as a bolus over 30 tb4 minutes Volume: 500 ml; Route: IV; Rate: 1 bolus; Site: left antecubital; 23:00 Follow up: Response: No adverse reaction; IV Status: Completed infusion tb4 Medication: 21:40 VIS not applicable for this client. me1 Outcome: 03/27 00:56 Decision to Hospitalize by Provider. cp 08:21 Patient left the ED. bc6 NIH Stroke Scale - NIH Stroke Score Date: 03/26/2025 Time: 21:21 Total Score = 0 10. Dysarthria (speech clarity - read or repeat words) - 0(Normal) 11. Extinction and Inattention (visual/tactile/auditory/spatial/personal) - 0(No abnormality) 1a. Level of Consciousness (LOC) - 0(Alert) 1b. Level of Consciousness (LOC) (Month \T\ Age) - 0(Both) 1c. LOC Commands (Open \T\ Closes Eyes/Neonatal Icu Coordinator) - 0(Both) 2. Best Gaze (Lateral Gaze Paresis) - 0(Normal) 3. Visual Field Loss - 0(No visual loss) 4. Facial Palsy - 0(Normal) 5a. Left Arm: Motor (10-second hold) - 0(No drift) 5b. Right Arm: Motor (10-second hold) - 0(No drift) 6a. Left Leg: Motor (5-second hold - always test supine) - 0(No drift) 6b. Right Leg: Motor (5-second hold - always test supine) - 0(No drift) 7. Limb Ataxia (finger/nose \T\ heel/agudelo - test with eyes open) - 0(Absent) 8. Sensory Loss (pinprick arms/legs/face) - 0(Normal) 9. Best Language: Aphasia (description/naming/reading) - 0(No aphasia) Initials: lg3 Signatures: Dispatcher [employer] EDMS Len Hyde PA PA cp Able, Lacie, RN RN lg3 Quyen Lawson jj6 Chelsea Fernandes bc6 Carol Goetz RN RN me1 Natalia Davis RN RN tb4 Melania Gtz ts3 Corrections: (The following items were deleted from the chart) 03/26 22:23 21:18 Chief complaint: intermittent confusion and unsteady gait beginning me1 today. pt reports increased tiredness lg3
[2025-03-27] MEDS ORDERED: ACETAMINOPHEN 325 MG TABLET PO PRN (01:54)
[2025-03-27] MEDS ORDERED: ONDANSETRON 4 MG/2 ML VIAL IV PRN (01:54)
--- NOTE | 2025-03-27 02:00 | P.HP ---
Certification for Inpatient Patient admitted to: Inpatient With expected LOS: >2 Midnights Practitioner: I am a practitioner with admitting privileges, knowledge of patient current condition, hospital course, and medical plan of care. Services: Services provided to patient in accordance with Admission requirements found in Title 42 Section 412.3 of the Code of Federal Regulations Patient History Date of Service: 03/27/25 Reason for admission: AMS History of Present Illness: 79-year-old male with past medical history of hypertension, glaucoma, BPH,, atrial fibrillation status post cardioversion on anticoagulation rought to ER with intermittent confusion and slow gait started this morning. Patient denies any chest pain or shortness of breath. No fever or chills no dysuria. Patient is a poor historian hence most of the history is obtained from the chart review and also talking to the ER physician.. Patient was assessed in the ED and was admitted for further management Allergies No Known Allergies Allergy (Verified 01/26/24 14:33) Home Medications: Finasteride [Proscar*] 5 mg PO DAILY 12/03/14 Gabapentin [Neurontin] 300 mg PO BID 12/03/14 Latanoprost Ophth [Xalatan 0.005% Ophth Kym] 2.5 ml OP DAILY 12/03/14 Levomefolate/B6/B12/Algal Oil [Metanx Capsule] 1 each PO DAILY 12/03/14 Losartan Potassium [Cozaar] 25 mg PO DAILY AFTER SUPPER 12/15/15 Ranitidine [Zantac] 150 mg PO BID 09/14/16 - Past Medical/Surgical History Past Medical History: Reviewed- Non-Contributory Past Surgical History: Reviewed- Non-Contributory - Social History Smoking Status: Never smoker Review of Systems 10-point ROS is otherwise unremarkable Physical Examination - Physical Exam General: Alert, In no apparent distress, Confused HEENT: Atraumatic, Normocephalic Neck: Supple Respiratory: Clear to auscultation bilaterally, Normal air movement Cardiovascular: Regular rate/rhythm, Normal S1 S2 Capillary refill: <2 Seconds Gastrointestinal: Soft and benign, W/out hepatosplenomegaly, W/out hepatomegaly Musculoskeletal: No clubbing, No swelling Integumentary: No rashes Neurological: Other (Alert awake no focal) Lymphatics: No axilla or inguinal lymphadenopathy - Studies Laboratory Data (last 24 hrs) 03/26/25 03/26/2525 22:22 22:22 22:22 WBC 5.10 Hgb 14.7 Hct 42.7 Plt Count 153 PT 33.4 H INR 3.05 APTT 42.5 H Sodium 134 L Potassium 3.8 BUN 12 Creatinine 1.40 H Glucose 92 Total Bilirubin 0.6 AST 13 L ALT 17 Alkaline Phosphatase 83 Assessment and Plan - Plan Acute encephalopathy possibly metabolic No focal weakness CT head negative for any acute changes Will get an MRI of the brain UA negative chest x-ray is negative Hypertension Antihypertensives titrated Continue home medications and titrate as needed Hyperlipidemia Continue statin BPH Continue home medications and titrate as needed History of atrial fibrillation Continue home medications Rate control GI/DVT prophylaxis Advanced directive full code Discharge Plan: Home Plan to discharge in: 48 Hours - Advance Directives Does patient have a Living Will: No Does patient have a Durable POA for Healthcare: No - Code Status/Comfort Care Code Status: Full Code Time Spent Managing Pts Care (In Minutes): 48
[2025-03-27 04:18] LABS: Influenza A Ag Negative; Influenza B Ag Negative; SARS-CoV-2 Antigen Rapid Res Positive (Negative)
--- NOTE | 2025-03-27 08:01 | RAD REPORT ---
EXAMINATION: MRI BRAIN WITHOUT CONTRAST CLINICAL INDICATION: Confusion/alteration of consciousness TECHNIQUE: Multiplanar multisequence MR images of the brain were obtained without intravenous contras t. Unless otherwise specified, incidental findings do not require dedicated imaging follow-up. COMPARISON: Head CT March 26, 2025 FINDINGS: Mild to moderate abnormal signal within periventricular, deep and subcortical white matter probably i schemic changes secondary to small vessel disease. Diffusion weighted/ADC mapping does not demonstrate evidence of an acute infarction. Ventricles are normal caliber. No extra-axial fluid collection. No fluid within the sinuses/mastoid seen IMPRESSION: No acute intracranial abnormalities displayed
[2025-03-27] MEDS: ASCORBIC ACID 500 MG TABLET PO SCH (13:57)
[2025-03-27] MEDS: BRIMONIDINE TARTRATE OP SCH (14:00)
[2025-03-27] MEDS: LOSARTAN POTASSIUM 50 MG TABLET PO SCH (16:43)
[2025-03-27] MEDS: BRIMONIDINE TARTRATE OPTH SCH (21:00)
[2025-03-27] MEDS: DIFLUPREDNATE OPTH SCH (21:00)
[2025-03-27] MEDS: CYCLOSPORINE OPTH SCH (21:00)
[2025-03-27] MEDS: METOPROLOL XL 50 MG TAB PO SCH (21:22)
[2025-03-27] MEDS: RIVAROXABAN 20 MG TABLET PO SCH (21:22)
[2025-03-27] MEDS: TAMSULOSIN 0.4 MG SR CAP PO SCH (21:22)
[2025-03-27] MEDS: FINASTERIDE 5 MG TAB PO SCH (21:23)
[2025-03-28 05:44] VITALS: BMI 23.3
[2025-03-28 07:49] LABS: Absolute Lymphocytes (CBC) 0.8 K/uL (0.7-4.9); Hematocrit 41.7 % (39.6-49.0); Hemoglobin 14.2 g/dL (13.6-17.9); MCH 29.3 pg (27.0-35.0); MCHC 34.0 g/dL (32.0-36.0); MCV 86.3 fL (80-100); MPV 7.6 fL (7.6-11.3); Nucleated RBC Absolute Count 0.0 (0-0); Nucleated Red Blood Cells % 0.1 % (0-0); RBC Red Blood Cell Count 4.83 M/uL (4.33-5.43); White Blood Count 4.00 thou/uL (4.3-10.9)
[2025-03-28 07:59] LABS: PT Prothrombin Time 25.2 SECONDS (10-13.0); PTT, Activated Partial Thromb 40.3 SECONDS (27.2-37.4); Protime INR 2.28
[2025-03-28 08:08] LABS: ALT/SGPT 21.0 U/L (16-61); AST/SGOT 19.0 U/L (15-37); Albumin 3.0 g/dL (3.4-5.0); Albumin/Globulin Ratio 1.0 (1.1-1.8); Alkaline Phosphatase 67.0 U/L (45-117); Anion Gap 7.7 mEq/L (5.0-15.0); BUN Blood Urea Nitrogen 22.0 mg/dL (7-18); Globulin 2.9 g/dL (2.3-3.5); Glucose Level 94.0 mg/dL (74-106); Potassium 3.7 mEq/L (3.5-5.1)
[2025-03-28] MEDS: FOLIC ACID PO SCH (09:00)
[2025-03-28] MEDS: CYANOCOBALAMIN PO SCH (09:00)
[2025-03-28] MEDS: VITAMIN B6 PO SCH (09:00)
[2025-03-28] MEDS: POTASSIUM CL SA 10 MEQ TAB PO ONE (12:00)
--- NOTE | 2025-03-28 17:17 | P.PN ---
Subjective Date of Service: 03/28/25 Chief Complaint: AMS Subjective: Improving (No acute events overnight. Patient is currently working with PT for proper safety awareness during transfer.) Physical Examination - Vital Signs Temperature: 98.3 F Blood Pressure: 128/76 Pulse: 74 Respirations: 18 Pulse Ox (%): 96 - Physical Exam General: Alert, In no apparent distress, Cooperative HEENT: Atraumatic, Normocephalic Respiratory: Other (Breathing is not labored) Neurological: Normal speech Assessment And Plan - Plan Assessment Patient is a 79-year-old male who was admitted after he presented with acute encephalopathy and gait disturbance. He tested positive for COVID-19. Patient has no hypoxia or respiratory distress. He is medically cleared pending clearance by PT/OT Acute encephalopathy Atrial fibrillation Hypertension COVID-19 Gait disturbance Plan: Brain MRI negative Resume anticoagulation since INR is not therapeutic Continue PT/OT while in-house Otherwise, patient is medically clear for for discharge Placement as per PT recommendation
[2025-03-29 06:24] LABS: Hematocrit 43.5 % (39.6-49.0); Hemoglobin 15.1 g/dL (13.6-17.9); MCH 30.0 pg (27.0-35.0); MCHC 34.6 g/dL (32.0-36.0); MCV 86.6 fL (80-100); RBC Red Blood Cell Count 5.03 M/uL (4.33-5.43); White Blood Count 3.90 thou/uL (4.3-10.9)
[2025-03-29 06:25] LABS: Absolute Lymphocytes (CBC) 1.1 K/uL (0.7-4.9); MPV 7.4 fL (7.6-11.3); Nucleated RBC Absolute Count 0.0 (0-0); Nucleated Red Blood Cells % 0.2 % (0-0)
[2025-03-29 06:46] LABS: Anion Gap 11.3 mEq/L (5.0-15.0); BUN Blood Urea Nitrogen 20.0 mg/dL (7-18); Glucose Level 102.0 mg/dL (74-106); Potassium 4.3 mEq/L (3.5-5.1)
[2025-03-29] MEDS: CHOLECALCIFEROL 1250 MCG PO SCH (09:00)
[2025-03-29 09:36] VITALS: O2SAT 97
--- NOTE | 2025-03-29 12:19 | P.DS ---
Admission Date: 03/27/25 Discharge Date: 03/29/25 Disposition: ROUTINE DISCHARGE Discharge Condition: GOOD Reason for Admission: [facility] Hospital Course: Patient is a 79-year-old male who was admitted after he presented with acute encephalopathy and gait disturbance. He tested positive for COVID-19. Patient has no hypoxia or respiratory distress. He is medically cleared. Patient stayed in the hospital to work with physical therapy. He has had at least 2 sessions. He has been eventually cleared today. He walked without assistance and no loss of balance observed. He can be discharged home today. Vital Signs/Physical Exam: Temp Pulse Resp BP Pulse Ox 97.9 F 86 16 116/82 97 03/29/25 08:00 03/29/25 08:00 03/29/25 08:00 03/29/25 08:00 03/29/25 08:00 General: Alert, In no apparent distress, Cooperative HEENT: Atraumatic, Normocephalic Respiratory: Clear to auscultation bilaterally, Normal air movement Cardiovascular: No edema, Normal pulses, Normal S1 S2, Irregular heart rate/rhythm Neurological: Normal speech, Normal strength at 5/5 x4 extr Laboratory Data at Discharge: WBC 3.90 thou/uL (4.3-10.9) L 03/29/25 06:01 Hgb 15.1 g/dL (13.6-17.9) 03/29/25 06:01 Hct 43.5 % (39.6-49.0) 03/29/25 06:01 Plt Count 147 thou/uL (152-406) L 03/29/25 06:01 PT 25.2 SECONDS (10-13.0) H 03/28/25 07:25 INR 2.28 03/28/25 07:25 APTT 40.3 SECONDS (27.2-37.4) H 03/28/25 07:25 Sodium 137 mEq/L (136-145) 03/29/25 06:01 Potassium 4.3 mEq/L (3.5-5.1) D 03/29/25 06:01 BUN 20 mg/dL (7-18) H 03/29/25 06:01 Creatinine 1.28 mg/dL (0.70-1.30) 03/29/25 06:01 Glucose 102 mg/dL (74-106) 03/29/25 06:01 Total Bilirubin 0.4 mg/dL (0.2-1.0) 03/28/25 07:25 AST 19 U/L (15-37) 03/28/25 07:25 ALT 21 U/L (16-61) 03/28/25 07:25 Alkaline Phosphatase 67 U/L (45-117) 03/28/25 07:25 Home Medications: Finasteride [Proscar*] 5 mg PO BEDTIME 12/03/14 Losartan Potassium [Cozaar] 25 mg PO DAILY AFTER SUPPER 12/15/15 Brimonidine Tartrate 1 drop OP TID 03/27/25 Cholecalciferol (Vitamin D3) [Vitamin D] 50,000 unit PO DAILY 03/27/25 Difluprednate [Durezol 0.05%] 1 drops OP BID 03/27/25 Folic Acid/Vitamin B6/Vit B12 [Folic Acid-B6-B12 Tab] 1 tab PO DAILY 03/27/25 Metoprolol Succinate [Toprol Xl*] 50 mg PO BEDTIME 03/27/25 Rivaroxaban [Xarelto] 20 mg PO BEDTIME 03/27/25 Tamsulosin [Flomax] 0.4 mg PO BEDTIME 03/27/25 cycloSPORINE [Cequa] 1 each OP BID 03/27/25 Followup: Sylvester Fletcher MD [Primary Care Provider] -
[2025-03-29 16:26] VITALS: BP 131/77; TEMP 97.8
== END 2025-03-29 16:31 | disposition home or self-care (01) | DRG 70 ==
LOC: ER 20:48 → ERHOLD 03-27 01:54 → 4TH 03-27 06:31
PROVIDERS: ADMIT Family Medicine; ATTEND Internal Medicine
DX: G93.41 Metabolic encephalopathy (principal); U07.1 COVID-19; I10 Essential (primary) hypertension; E78.5 Hyperlipidemia, unspecified; H40.9 Unspecified glaucoma; Z90.49 Acquired absence of other specified parts of digestive tract; Z79.01 Long term (current) use of anticoagulants; Z79.899 Other long term (current) drug therapy; N40.0 Benign prostatic hyperplasia without lower urinary tract symptoms; R26.9 Unspecified abnormalities of gait and mobility
CPT/HCPCS: 36415; 70450; 70551; 71045; 80048; 80053; 81001; 82947; 83605; 83880; 84484; 85025; 85610; 85730; 87040; 87428; 93005; 97110; 97116; 97161; 99285; J7040